=== PATIENT | male | born 1975 | race Caucasian/White ===

== ENCOUNTER 2016-09-07 18:18 | Emergency (ER) | payer OTHER, MEDICAID ==
[~2016-09-07 18:18] MED LIST: ASPI81CH37 CHEW; ATEN50TA PO; CLON1TAB PO; FLUO20CA4 PO; PERC7.5T13 PO; TRAM50TA PO; XARE15TA PO; ZOFR8TAB PO
[2016-09-07 18:36] VITALS: BP 148/98; PULSE 70; RESP 16; TEMP 98.6; O2SAT 98
--- NOTE | 2016-09-07 21:54 | RADHPO ---
EXAM DATE/TIME: 09/07/2016 21:24 [facility] COMPARISON: US LEG RIGHT VENOUS DOPPLER, June 04, 2016, 13:25. INDICATIONS : Right leg pain. MEDICAL HISTORY : Hypertension. Renal calculi. Pulmonary embolism. Vertigo. Anticoagulant therapy, Xarelto. Depress ion. SURGICAL HISTORY : Right shoulder surgery. Left elbow surgery. ENCOUNTER: Subsequent ACUITY: 3 days PAIN SCORE: 7/10 LOCATION: Right leg. TECHNIQUE: Venous ultrasound of the leg was performed from the inguinal ligament to the proximal calf. Real-cesar e, color Doppler and spectral tracing, compression and augmentation techniques were used. FINDINGS: There is normal compressibility of the deep venous system from the inguinal region to the proximal ca lf. No echogenic clot is seen in the lumen of the common femoral, femoral, popliteal, and posterior tibial veins. There is a normal response of the venous system to proximal and distal augmentation an d respiration. CONCLUSION: No DVT. Nahun Meadows MD on September 07, 2016 at 21:53 Board Certified Radiologist. This report was verified electronically.
--- NOTE | 2016-09-07 22:19 | PD ---
HPI Chief Complaint: Musculoskeletal Complaint Time Seen by Provider: 22:14 Travel History International Travel<30 days: No Contact w/Intl Traveler<30days: No Traveled to known affect area: No History of Present Illness HPI Patient comes in with concerns over right calf pain. Patient states he's had history of blood clot in that leg previously and was on Xarelto however is primary care doctor took him off of it. Patient states pain began 3 days ago. Patient states he's been having a pain from his sciatica right-sided ongoing for approximately week which he sees a chiropractor. States the chiropractor recommended he come in to be evaluate for possible new DVT. Patient described pain is sharp like in nature that radiates proximally. Denies any chest pain, shortness of breath, fevers, or known injury. PFSH Past Medical History Hx Anticoagulant Therapy: No (S/P XARELTO) Arthritis: No Asthma: No Autoimmune Disease: No Anxiety: No Depression: Yes Heart Rhythm Problems: No Cancer: No Cardiovascular Problems: Yes (htn) High Cholesterol: No Chemotherapy: No Chest Pain: No Congestive Heart Failure: No COPD: No Cerebrovascular Accident: No Diabetes: No Diminished Hearing: No Endocrine: No GERD: No Genitourinary: Yes Hiatal Hernia: No Hypertension: Yes Immune Disorder: No Implanted Vascular Access Dvce: Yes Kidney Stones: Yes Medical other: Yes (Vertigo) Musculoskeletal: Yes (right shoulder and left elbow surgery) Neurologic: No Psychiatric: Yes Reproductive: No Immunizations Current: Yes Radiation Therapy: No Renal Failure: No Sickle Cell Disease: No Sleep Apnea: No Ulcer: No Past Surgical History Abdominal Surgery: No AICD: No Arteriovenous Shunt: No Body Medical Devices: titanium in right shouler and left elbow Cardiac Surgery: No Ear Surgery: No Endocrine Surgery: No Eye Surgery: No Genitourinary Surgery: No Gynecologic Surgery: No Insulin Pump: No Joint Replacement: No Oral Surgery: No Pacemaker: No Thoracic Surgery: No Other Surgery: Yes Social History Alcohol Use: No Tobacco Use: No Substance Use: No Allergies-Medications (Allergen,Severity, Reaction): Coded Allergies: Morphine (Verified Allergy, Mild, rash, 09/07/16) Percocet (Verified Allergy, Mild, rash, 09/07/16) takes benadryl with it to prevent rash Reported Meds & Prescriptions Reported Meds & Active Scripts Active Xarelto (Rivaroxaban) 15 Mg Tab 15 Mg PO Q12HR Percocet (Oxycodone-Acetaminophen) 7.5-325 mg Tab 1 Tab PO Q4H PRN Reported Clonazepam 1 Mg Tab 1 Mg PO DAILY Atenolol 50 Mg Tab 50 Mg PO DAILY Tramadol (Tramadol HCl) 50 Mg Tab 50 Mg PO Q8H PRN Review of Systems Except as stated in HPI: all other systems reviewed are Neg Physical Exam Narrative GENERAL: Well-developed, well nourished, in no acute distress, and non-ill appearing. SKIN: Warm and dry. HEAD: Atraumatic. Normocephalic. EYES: Pupils equal and round. EOMI. No scleral icterus. No injection or drainage. ENT: No nasal bleeding or discharge. Mucous membranes pink and moist. NECK: Trachea midline. Supple. No nuclear rigidity. CARDIOVASCULAR: Dorsal pulses 2+ intact and equal bilaterally. Capillary refill less than 2 seconds. No pedal edema. RESPIRATORY: No accessory muscle use. No respiratory distress. MUSCULOSKELETAL: No obvious deformities. No clubbing. No cyanosis. No edema. Full range of motion. Negative Homans sign. NEUROLOGICAL: Awake and alert. No obvious cranial nerve deficits. Motor grossly within normal limits. Normal speech. PSYCHIATRIC: Appropriate mood and affect; insight and judgment normal. Data Data Last Documented VS Vital Signs Date Time Temp Pulse Resp B/P Pulse Ox O2 Delivery O2 Flow Rate FiO2 09/07/16 18:36 98.6 70 16 148/98 98 Orders Us Leg Venous Doppler (09/07/16 19:01) MDM Medical Decision Making Medical Screen Exam Complete: Yes Emergency Medical Condition: Yes Differential Diagnosis DVT, sciatica, muscle ache, muscle strain, other Narrative Course Patient in no obvious distress upon re-evaluation. All pertinent Radiology result(s) discussed with patient. Discussed patient with Dr. Abarca prior to discharge, who is in agreement with plan of care and disposition. Any questions /concerns in reference to patient diagnosis/condition discussed and clarified prior to patient's discharge. Reinforced sheer importance of close follow up with patient's primary physician or primary care clinic. Instructed patient to return to ED immediately, if symptoms return/worsen. Pt showed understanding of above instructions. Further instructions and recommendations were detailed in discharge paperwork. Pt ambulated without difficulty out of ED at discharge. Diagnosis Primary Impression: Right leg pain Patient Instructions: General Instructions, Leg Pain (ED) Additional Instructions: Follow-up with your primary care physician in one to 3 days for reevaluation. Return to the emergency department if symptoms get worse. Disposition: 01 DISCHARGE HOME Condition: Stable Brandt Luciano Sep 07, 2016 22:19
== END 2016-09-07 22:52 | disposition home or self-care (01) ==
LOC: PHED 18:18 → PHEFT 22:52
DX: M79.661 Pain in right lower leg (principal)
CPT/HCPCS: 93971

== ENCOUNTER 2016-09-21 09:00 | Emergency (ER) | payer OTHER, MEDICAID ==
[~2016-09-21] VITALS: Ht 180.3 cm; Wt 79.0 kg
[~2016-09-21 09:00] MED LIST changes: -ASPI81CH37 CHEW; -FLUO20CA4 PO; -ZOFR8TAB PO
[2016-09-21 09:21] VITALS: BP 178/98; PULSE 50; RESP 17; TEMP 98.1; O2SAT 100
[2016-09-21] MEDS ORDERED: ZOLP10TA3 PO (09:27)
[2016-09-21 09:37] VITALS: O2SAT 100
[2016-09-21 09:43] VITALS: BP_SYST 140; BP_SYST 160; BP_DIAS 89; BP_DIAS 92
--- NOTE | 2016-09-21 09:44 | PD ---
HPI Chief Complaint: Chest Pain Time Seen by Provider: 09:25 Travel History International Travel<30 days: No Contact w/Intl Traveler<30days: No Traveled to known affect area: No History of Present Illness HPI 41yo M with PMH of anxiety, PE off xarelto presents to the ED with c/o midsternal chest pain since yesterday. States he also has abdominal pain with some nausea. Pain is midsternal and nonradiating. Denies any sob, fever, vomiting, urinary complaints, focal weakness or numbness. Pt has had right lower leg pain for 3 weeks and had negative US RLQ on 09/07/16 that was negative. States it was sciatica. PFSH Past Medical History Hx Anticoagulant Therapy: No (S/P XARELTO) Arthritis: No Asthma: No Autoimmune Disease: No Anxiety: No Depression: Yes Heart Rhythm Problems: No Cancer: No Cardiovascular Problems: Yes (htn) High Cholesterol: No Chemotherapy: No Chest Pain: No Congestive Heart Failure: No COPD: No Cerebrovascular Accident: No Diabetes: No Diminished Hearing: No Deep Vein Thrombosis: Yes (RIGHT LEG) Endocrine: No GERD: No Genitourinary: Yes Hiatal Hernia: No Hypertension: Yes Immune Disorder: No Implanted Vascular Access Dvce: Yes Kidney Stones: Yes Medical other: Yes (Vertigo) Musculoskeletal: Yes (right shoulder and left elbow surgery) Neurologic: No Psychiatric: Yes Reproductive: No Immunizations Current: Yes Radiation Therapy: No Renal Failure: No Sickle Cell Disease: No Sleep Apnea: No Ulcer: No Tetanus Vaccination: > 5 Years Influenza Vaccination: Yes Past Surgical History Abdominal Surgery: No AICD: No Arteriovenous Shunt: No Body Medical Devices: titanium in right shouler and left elbow Cardiac Surgery: No Ear Surgery: No Endocrine Surgery: No Eye Surgery: No Genitourinary Surgery: No Gynecologic Surgery: No Insulin Pump: No Joint Replacement: No Oral Surgery: No Pacemaker: No Thoracic Surgery: No Other Surgery: Yes Social History Alcohol Use: No Tobacco Use: No Substance Use: No Allergies-Medications (Allergen,Severity, Reaction): Coded Allergies: Morphine (Verified Allergy, Mild, rash, 09/21/16) Percocet (Verified Allergy, Mild, rash, 09/21/16) takes benadryl with it to prevent rash Reported Meds & Prescriptions Reported Meds & Active Scripts Active Reported Zolpidem (Zolpidem Tartrate) 10 Mg Tab 10 Mg PO HS PRN Clonazepam 1 Mg Tab 1 Mg PO DAILY Atenolol 50 Mg Tab 50 Mg PO DAILY Review of Systems Except as stated in HPI: all other systems reviewed are Neg Physical Exam Narrative GENERAL: 41yo M not in distress. SKIN: Warm and dry. HEAD: Atraumatic. Normocephalic. EYES: Pupils equal and round. No scleral icterus. No injection or drainage. ENT: No nasal bleeding or discharge. Mucous membranes pink and moist. NECK: Trachea midline. No JVD. CARDIOVASCULAR: Regular rate and rhythm. No murmur appreciated. RESPIRATORY: No accessory muscle use. Clear to auscultation. Breath sounds equal bilaterally. GASTROINTESTINAL: Abdomen soft, diffuse ttp. No rebound tenderness or guarding. MUSCULOSKELETAL: No obvious deformities. No clubbing. No cyanosis. No edema. NEUROLOGICAL: Awake and alert. No obvious cranial nerve deficits. Motor grossly within normal limits. Normal speech. PSYCHIATRIC: Appropriate mood and affect; insight and judgment normal. Data Data Last Documented VS Vital Signs Date Time Temp Pulse Resp B/P Pulse Ox O2 Delivery O2 Flow Rate FiO2 09/21/16 11:12 49 14 135/87 98 Room Air 09/21/16 09:21 98.1 Orders Basic Metabolic Panel (Bmp) (09/21/16 09:34) Ckmb (Isoenzyme) Profile (09/21/16 09:34) Complete Blood Count With Diff (09/21/16 09:34) Magnesium (Mg) (09/21/16 09:34) Prothrombin Time / Inr (Pt) (09/21/16 09:34) Act Partial Throm Time (Ptt) (09/21/16 09:34) Troponin I (09/21/16 09:34) Ecg Monitoring (09/21/16 09:34) Bilateral Bp Monitoring (09/21/16 09:34) Iv Access Insert/Monitor (09/21/16 09:34) Oximetry (09/21/16 09:34) Oxygen Administration (09/21/16 09:34) Sodium Chloride 0.9% Flush (Ns Flush) (09/21/16 09:45) Ct Pulmonary Angiogram (09/21/16 09:34) Ct Abd/Pel W Iv Contrast(Rout) (09/21/16 ) Urinalysis - C+S If Indicated (09/21/16 09:44) Lipase (09/21/16 09:40) Pantoprazole Inj (Protonix Inj) (09/21/16 11:00) Iohexol 350 Inj (Omnipaque 350 Inj) (09/21/16 11:01) Labs Laboratory Tests Test 09/21/16 09/21/16 09:40 09:50 White Blood Count 7.6 TH/MM3 Red Blood Count 5.77 MIL/MM3 Hemoglobin 15.0 GM/DL Hematocrit 46.5 % Mean Corpuscular Volume 80.6 FL Mean Corpuscular Hemoglobin 26.0 PG Mean Corpuscular Hemoglobin 32.3 % Concent Red Cell Distribution Width 14.2 % Platelet Count 173 TH/MM3 Mean Platelet Volume 10.1 FL Neutrophils (%) (Auto) 62.3 % Lymphocytes (%) (Auto) 26.7 % Monocytes (%) (Auto) 9.5 % Eosinophils (%) (Auto) 0.7 % Basophils (%) (Auto) 0.8 % Neutrophils # (Auto) 4.7 TH/MM3 Lymphocytes # (Auto) 2.0 TH/MM3 Monocytes # (Auto) 0.7 TH/MM3 Eosinophils # (Auto) 0.1 TH/MM3 Basophils # (Auto) 0.1 TH/MM3 CBC Comment DIFF FINAL Differential Comment Prothrombin Time 11.5 SEC Prothromb Time International 1.0 RATIO Ratio Activated Partial 26.1 SEC Thromboplast Time Sodium Level 140 MEQ/L Potassium Level 3.4 MEQ/L Chloride Level 100 MEQ/L Carbon Dioxide Level 32.2 MEQ/L Anion Gap 8 MEQ/L Blood Urea Nitrogen 17 MG/DL Creatinine 1.00 MG/DL Estimat Glomerular Filtration 82 ML/MIN Rate Random Glucose 93 MG/DL Calcium Level 8.9 MG/DL Magnesium Level 2.3 MG/DL Total Creatine Kinase 99 U/L Troponin I LESS THAN 0.02 NG/ML Lipase 140 U/L Urine Collection Type CLEAN CATCH Urine Color YELLOW Urine Turbidity CLEAR Urine pH 7.0 Urine Specific Letcher 1.015 Urine Protein NEG mg/dL Urine Glucose (UA) NEG mg/dL Urine Ketones NEG mg/dL Urine Occult Blood SMALL Urine Nitrite NEG Urine Bilirubin NEG Urine Leukocyte Esterase NEG Urine RBC 4-9 /hpf Urine Squamous Epithelial 0-5 /hpf Cells Microscopic Urinalysis Comment CULT NOT INDICATED Urine Collection Time 09:50 [facility] Medical Decision Making Medical Screen Exam Complete: Yes Emergency Medical Condition: Yes Interpretation(s) EKG: Sinus bradycardia at 52bpm. Normal axis. No ST segment elevation or depression. Differential Diagnosis Atypical chest pain vs. musculoskeletal pain vs. PE vs. anxiety Narrative Course 41yo M with very atypical chest pain as well as abdominal pain. Labs reviewed, no leukocytosis. Troponin negative. Lipase negative. K: 3.4, replaced orally. CTA showed no PE, infiltrate or effusion. UA showed small blood. Urine RBC 4 -9. Pt given pantoprazole and reevaluated at bedside. Pain has resolved. Abd is soft, NT/ND. No rebound tenderness or guarding. CT angio showed no PE. CTa /p showed nondistension vs. less likely wall thickening within the descending sigmoid colon. No inflammatory changes. Left kidney low density which may be cyst, informed pt to follow up with PMD as outpatient. Chest pain is very atypical and unlikely to be cardiac. Return precautions given. HR is in the low to mid 50s and is baseline for patient as per patient. Diagnosis Primary Impression: Abdominal pain Qualified Code: R10.84 - Generalized abdominal pain Patient Instructions: General Instructions Departure Forms: Tests/Procedures Additional Instructions: Please follow up with your PMD tomorrow. CT a/p showed left renal low density may be cyst. Please do further evaluation as outpatient. Med/Other Pt SpecificInfo: Prescription(s) given Scripts Omeprazole 40 Mg Cap40 Mg PO DAILY 7 Days Ref 0 Prov:Sonali Morgan DO 09/21/16 Disposition: 01 DISCHARGE HOME Condition: Stable Sonali Morgan DO Sep 21, 2016 09:44
[2016-09-21] MEDS ORDERED: SODIUM CHLORIDE 0.9% FLUSH 5 ML FLUSH IVF PRN (09:45)
[2016-09-21 09:48] LABS: AUTOMATED NEUTROPHIL # 4.7 TH/MM3 (1.8-7.7); BASOPHIL # 0.1 TH/MM3 (0-0.2); BASOPHIL % 0.8 % (0.0-2.0); EOSINOPHIL # 0.1 TH/MM3 (0-0.4); EOSINOPHIL % 0.7 % (0.0-4.0); HEMATOCRIT 46.5 % (39.0-51.0); HEMO FLAGS DIFF FINAL; LYMPH % 26.7 % (9.0-44.0); MEAN CELL VOLUME 80.6 FL (80.0-100.0); MEAN CORPUSCULAR HGB CONC 32.3 % (32.0-36.0); MONO % 9.5 % (0.0-8.0); NEUT % 62.3 % (16.0-70.0); PLATELET COUNT 173 TH/MM3 (150-450); RED BLOOD COUNT 5.77 MIL/MM3 (4.50-5.90); RED CELL DISTRIBUTION WIDTH 14.2 % (11.6-17.2); WHITE BLOOD COUNT 7.6 TH/MM3 (4.0-11.0)
[2016-09-21 10:00] LABS: APTT (PATIENT) 26.1 SEC (24.3-30.1); PROTHROMBIN TIME - PATIENT 11.5 SEC (9.8-11.6)
[2016-09-21 10:02] LABS: BLOOD, URINE SMALL (NEG); GLUCOSE,URINE NEG (NEG); KETONE, URINE NEG (NEG); NITRITE,URINE NEG (NEG)
[2016-09-21 10:10] LABS: CHLORIDE 100 MEQ/L (98-107); POTASSIUM 3.4 MEQ/L (3.5-5.1); SODIUM (NA) 140 MEQ/L (136-145)
[2016-09-21 10:13] LABS: ANION GAP 8 MEQ/L (5-15); BICARBONATE 32.2 MEQ/L (21.0-32.0); MAGNESIUM 2.3 MG/DL (1.5-2.5)
[2016-09-21 10:14] LABS: BLOOD UREA NITROGEN 17 MG/DL (7-18)
[2016-09-21 10:15] LABS: GLOMERULAR FILTRATION RATE 82 ML/MIN (>89)
[2016-09-21 10:41] LABS: CREATINE KINASE 99 U/L (39-308)
[2016-09-21] MEDS ORDERED: PANTOPRAZOLE SODIUM 40 MG VIAL IV PUSH ONE (11:00)
[2016-09-21] MEDS ORDERED: IOHEXOL 350 MG/ML 10 ML VIAL (for RAD DIAG) IV ONE (11:01)
[2016-09-21 11:12] VITALS: BP 135/87; PULSE 49; RESP 14; O2SAT 98
--- NOTE | 2016-09-21 11:19 | RADHPO ---
EXAM DATE/TIME: 09/21/2016 10:51 [facility] COMPARISON: CHEST SINGLE AP, June 05, 2016, 18:21. CT PULMONARY ANGIOGRAM, June 04, 2016, 13:12. INDICATIONS : Intermittent anterior chest tightness. History of pulmonary embolism. IV CONTRAST: 75 cc Omnipaque 350 (iohexol) IV ; Cumulative dose for multiple exams. RADIATION DOSE: 18.55 CTDIvol (mGy) MEDICAL HISTORY : Hypertension. Deep venous thrombosis. Renal calculi.Anticoagulant therapy. Pulmonary embolism. SURGICAL HISTORY : Orthopedic surgery. ENCOUNTER: Initial ACUITY: 2 days PAIN SCALE: 5/10 LOCATION: chest anterior TECHNIQUE: Volumetric scanning of the chest was performed using a pulmonary embolism protocol MIP images were re constructed. Using automated exposure control and adjustment of the mA and/or kV according to patien t size, radiation dose was kept as low as reasonably achievable to obtain optimal diagnostic quality images. FINDINGS: PULMONARY ARTERIES: No filling defects are seen in the pulmonary arteries through the segmental level. LUNGS: There is no consolidation or pneumothorax . No concerning pulmonary nodule is visualized. PLEURAE: There is no pleural thickening or pleural effusion. MEDIASTINUM: There is good visualization of the great vessels of the middle mediastinum. No evidence of mediastin al or hilar adenopathy/mass. MUSCULOSKELETAL: Within normal limits for patient age. MISCELLANEOUS: The visualized upper abdominal organs demonstrate no acute abnormality. CONCLUSION: 1. No evidence for pulmonary embolism. 2. No infiltrate or effusion. Doug Palacios MD on September 21, 2016 at 11:12 Board Certified Radiologist. This report was verified electronically.
--- NOTE | 2016-09-21 11:24 | RADHPO ---
EXAM DATE/TIME: 09/21/2016 10:51 [facility] COMPARISON: No previous studies available for comparison. INDICATIONS : Lower abdominal pain. IV CONTRAST: 75 cc Omnipaque 350 (iohexol) IV ; Cumulative dose for multiple exams. ORAL CONTRAST: No oral contrast ingested. RADIATION DOSE: 16.18 CTDIvol (mGy) MEDICAL HISTORY : Hypertension. Deep venous thrombosis. Renal calculi.Anticoagulant therapy. Pulmonary embolism SURGICAL HISTORY : Orthopedic surgery. ENCOUNTER: Initial ACUITY: 2 days PAIN SCALE: 5/10 LOCATION: Bilateral lower quadrant TECHNIQUE: Volumetric scanning of the abdomen and pelvis was performed. Using automated exposure control and ad justment of the mA and/or kV according to patient size, radiation dose was kept as low as reasonably achievable to obtain optimal diagnostic quality images. FINDINGS: LOWER LUNGS: The visualized lower lungs are clear. LIVER: Homogeneous density without lesion. There is no dilation of the biliary tree. No calcified gallston es. SPLEEN: Normal size without lesion. PANCREAS: Within normal limits. KIDNEYS: Normal in size and shape. There is no mass, stone or hydronephrosis. Left renal low-density upper po le left kidney measure 7 mm. ADRENAL GLANDS: Within normal limits. VASCULAR: There is no aortic aneurysm. BOWEL/MESENTERY: The stomach, small bowel, and colon demonstrate no acute abnormality. Nondistention versus less likel y wall thickening within the descending and sigmoid colon. No inflammatory changes. There is no free intraperitoneal air or fluid. ABDOMINAL WALL: Within normal limits. RETROPERITONEUM: There is no lymphadenopathy. BLADDER: No wall thickening or mass. REPRODUCTIVE: Within normal limits. INGUINAL: There is no lymphadenopathy or hernia. MUSCULOSKELETAL: Within normal limits for patient age. CONCLUSION: 1. Nondistention versus less likely wall thickening within the descending and sigmoid colon. No infla mmatory changes. 2. Left renal low-density left kidney may be related to a cyst but is too small to characterize. Katie l sonogram may be warranted. Doug Palacios MD on September 21, 2016 at 11:17 Board Certified Radiologist. This report was verified electronically.
[2016-09-21 11:43] LABS: COMMENT (UR) CULT NOT INDICATED; CULTURE IF INDICATED CULT NOT INDICATED; METHOD OF COLLECTION CLEAN CATCH; SQUAMOUS EPITHELIAL CELL URINE 0-5 /hpf (0-5); URINE COLOR YELLOW (YELLW/STRAW)
[2016-09-21] MEDS ORDERED: OMEP40CA2 PO (12:27)
[2016-09-21 12:37] VITALS: BP 124/80; PULSE 50; RESP 17; O2SAT 98
--- NOTE | 2016-09-23 00:07 | EKG ---
Date Performed: 09/21/2016 Time Performed: 09:10:14 PTAGE: 41 years EKG: Sinus bradycardia. Normal ECG except for rate PREVIOUS TRACING : 06/05/2016 18.19 Compared to prior tracing no significant change DOCTOR: Lam Doshi Interpretating Date/Time 09/23/2016 00:06:29
== END 2016-09-21 12:47 | disposition home or self-care (01) ==
LOC: PHED 09:00
DX: R10.84 Generalized abdominal pain (principal); R11.0 Nausea; I10 Essential (primary) hypertension; Z79.01 Long term (current) use of anticoagulants
CPT/HCPCS: 71275; 74177; 80048; 81001; 82550; 83690; 83735; 84484; 85025; 85610; 85730; 93005; 96374; 99284; C9113; Q9967

== ENCOUNTER 2016-10-13 00:41 | Emergency (ER) | payer OTHER, MEDICAID ==
[2016-10-13] VITALS (7 sets, daily range): BP systolic 119–154; BP diastolic 75–101; PULSE 54–117; RESP 18–20; TEMP 97.8; O2SAT 96–100
[~2016-10-13] VITALS: Ht 180.3 cm; Wt 81.1 kg
[~2016-10-13 00:41] MED LIST changes: +OMEP40CA2 PO; -PERC7.5T13 PO; -TRAM50TA PO; -XARE15TA PO; +ZOLP10TA3 PO
[2016-10-13] MEDS ORDERED: GABA300C5 PO (01:04)
[2016-10-13] MEDS ORDERED: SODIUM CHLORIDE 0.9% FLUSH 10 ML FLUSH IVF PRN (01:15)
[2016-10-13] MEDS ORDERED: ASPIRIN 81 MG CHEW TAB PO ONE (01:15)
--- NOTE | 2016-10-13 01:18 | PD ---
HPI Chief Complaint: Chest Pain Time Seen by Provider: 01:12 Travel History International Travel<30 days: No Contact w/Intl Traveler<30days: No Traveled to known affect area: No History of Present Illness HPI 41-year-old male presents to the emergency department by private transportation for evaluation of chest pain and shortness of breath. Patient reports symptoms began this morning and have been persistent and progressively worsening throughout the day. Patient also complains of bilateral hand and feet numbness and tingling. Patient ran out of his clonazepam yesterday morning and does not have access to a refill of his prescription until 10/16/16. Patient also reports that he has a history of hypertension but no dyslipidemia no CAD and no diabetes. Patient denies any fever or productive cough. Patient denies any abdominal pain. No laxity pain or swelling. 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 Patient was treated for 2 months on Xarelto and has been off this medication for some time. PFSH Past Medical History Narrative Medical Anxiety, depression, hypertension, DVT, PE, sciatica, kidney stone, right shoulder and left elbow surgery, no tobacco use; nursing notes reviewed Hx Anticoagulant Therapy: No (S/P XARELTO) Arthritis: No Asthma: No Autoimmune Disease: No Anxiety: No Depression: Yes Heart Rhythm Problems: No Cancer: No Cardiovascular Problems: Yes (htn) High Cholesterol: No Chemotherapy: No Chest Pain: No Congestive Heart Failure: No COPD: No Cerebrovascular Accident: No Diabetes: No Diminished Hearing: No Deep Vein Thrombosis: Yes (RIGHT LEG) Endocrine: No GERD: No Genitourinary: Yes Hiatal Hernia: No Hypertension: Yes Immune Disorder: No Implanted Vascular Access Dvce: Yes Kidney Stones: Yes Musculoskeletal: Yes (right shoulder and left elbow surgery) Neurologic: No Psychiatric: Yes Reproductive: No Immunizations Current: Yes Radiation Therapy: No Renal Failure: No Sickle Cell Disease: No Sleep Apnea: No Ulcer: No Past Surgical History Abdominal Surgery: No AICD: No Arteriovenous Shunt: No Body Medical Devices: titanium in right shouler and left elbow Cardiac Surgery: No Ear Surgery: No Endocrine Surgery: No Eye Surgery: No Genitourinary Surgery: No Gynecologic Surgery: No Insulin Pump: No Joint Replacement: No Oral Surgery: No Pacemaker: No Thoracic Surgery: No Other Surgery: Yes Social History Alcohol Use: No Tobacco Use: No Substance Use: No Allergies-Medications (Allergen,Severity, Reaction): Coded Allergies: Morphine (Verified Allergy, Mild, rash, 10/13/16) Percocet (Verified Allergy, Mild, rash, 10/13/16) takes benadryl with it to prevent rash Reported Meds & Prescriptions Reported Meds & Active Scripts Active Robaxin (Methocarbamol) 750 Mg Tab 750 Mg PO Q6HR Reported Gabapentin 300 Mg Cap 300 Mg PO BID Clonazepam 1 Mg Tab 1 Mg PO DAILY Atenolol 50 Mg Tab 50 Mg PO DAILY Review of Systems Except as stated in HPI: all other systems reviewed are Neg General / Constitutional: No: Fever, Chills HENT: No: Congestion Cardiovascular: Positive: Chest Pain or Discomfort Respiratory: Positive: Shortness of Breath, No: Pleuritic Pain Gastrointestinal: No: Nausea, Vomiting, Abdominal Pain Genitourinary: No: Dysuria, Flank Pain Musculoskeletal: No: Myalgias, Arthralgias, Edema Skin: No Rash Neurologic: Positive: Paresthesia (bilateral hands and feet), No: Weakness, Dizziness, Syncope, Focal Abnormalities, Coordination Problem, Headache, Change in Mentation, Slurred Speech Psychiatric: Positive: Anxiety, No: Substance Abuse Endocrine: No: Heat Intolerance Hematologic/Lymphatic: No: Easy Bruising Physical Exam Narrative GENERAL: Well-developed well-nourished male in no respiratory distress appears anxious SKIN: Warm and dry. HEAD: Atraumatic. Normocephalic. EYES: Pupils equal and round. No scleral icterus. No injection or drainage. ENT: No nasal bleeding or discharge. Mucous membranes pink and moist. NECK: Trachea midline. No JVD. CARDIOVASCULAR: Regular rate and rhythm. RESPIRATORY: No accessory muscle use. Clear to auscultation. Breath sounds equal bilaterally. GASTROINTESTINAL: Abdomen soft, non-tender, nondistended. Hepatic and splenic margins not palpable. MUSCULOSKELETAL: Extremities without clubbing, cyanosis, or edema. No obvious deformities. NEUROLOGICAL: Awake and alert. No obvious cranial nerve deficits. Motor grossly within normal limits. Five out of 5 muscle strength in the arms and legs. Normal speech. PSYCHIATRIC: Appropriate mood and affect; insight and judgment normal. Data Data Last Documented VS Vital Signs Date Time Temp Pulse Resp B/P Pulse Ox O2 Delivery O2 Flow Rate FiO2 10/13/16 02:47 59 18 119/75 96 Room Air 10/13/16 01:09 97.8 Orders Electrocardiogram (10/13/16 01:12) Basic Metabolic Panel (Bmp) (10/13/16 01:12) Ckmb (Isoenzyme) Profile (10/13/16 01:12) Complete Blood Count With Diff (10/13/16 01:12) D-Dimer (10/13/16 01:12) Magnesium (Mg) (10/13/16 01:12) Prothrombin Time / Inr (Pt) (10/13/16 01:12) Act Partial Throm Time (Ptt) (10/13/16 01:12) Troponin I (10/13/16 01:12) Chest, Single Ap (10/13/16 01:12) Ecg Monitoring (10/13/16 01:12) Bilateral Bp Monitoring (10/13/16 01:12) Iv Access Insert/Monitor (10/13/16 01:12) Oximetry (10/13/16 01:12) Oxygen Administration (10/13/16 01:12) Aspirin Chew (Aspirin Chew) (10/13/16 01:15) Sodium Chloride 0.9% Flush (Ns Flush) (10/13/16 01:15) CKMB (10/13/16 01:35) CKMB% (10/13/16 01:35) Potassium Chloride (Kcl) (10/13/16 03:00) Sodium Chlorid 0.9% 500 Ml Inj (Ns 500 M (10/13/16 03:00) Ketorolac Inj (Toradol Inj) (10/13/16 03:00) Labs Laboratory Tests Test 10/13/16 01:35 White Blood Count 6.9 TH/MM3 Red Blood Count 5.64 MIL/MM3 Hemoglobin 14.5 GM/DL Hematocrit 45.1 % Mean Corpuscular Volume 79.9 FL Mean Corpuscular Hemoglobin 25.7 PG Mean Corpuscular Hemoglobin 32.2 % Concent Red Cell Distribution Width 14.9 % Platelet Count 177 TH/MM3 Mean Platelet Volume 10.3 FL Neutrophils (%) (Auto) 65.4 % Lymphocytes (%) (Auto) 25.6 % Monocytes (%) (Auto) 7.7 % Eosinophils (%) (Auto) 0.6 % Basophils (%) (Auto) 0.7 % Neutrophils # (Auto) 4.6 TH/MM3 Lymphocytes # (Auto) 1.8 TH/MM3 Monocytes # (Auto) 0.5 TH/MM3 Eosinophils # (Auto) 0.0 TH/MM3 Basophils # (Auto) 0.0 TH/MM3 CBC Comment DIFF FINAL Differential Comment Prothrombin Time 11.8 SEC Prothromb Time International 1.1 RATIO Ratio Activated Partial 26.4 SEC Thromboplast Time D-Dimer Quantitative (PE/DVT) 0.20 MG/L FEU Sodium Level 142 MEQ/L Potassium Level 3.1 MEQ/L Chloride Level 105 MEQ/L Carbon Dioxide Level 23.5 MEQ/L Anion Gap 14 MEQ/L Blood Urea Nitrogen 17 MG/DL Creatinine 1.00 MG/DL Estimat Glomerular Filtration 82 ML/MIN Rate Random Glucose 113 MG/DL Calcium Level 9.4 MG/DL Magnesium Level 2.0 MG/DL Total Creatine Kinase 535 U/L Creatine Kinase MB 1.9 NG/ML Creatine Kinase MB % 0.4 % Troponin I LESS THAN 0.02 NG/ML MDM Medical Decision Making Medical Screen Exam Complete: Yes Emergency Medical Condition: Yes Medical Record Reviewed: Yes Interpretation(s) EKG: Normal sinus rhythm rate [address] elevation or injury pattern also no ectopy noted Vital Signs Date Time Temp Pulse Resp B/P Pulse Ox O2 Delivery O2 Flow Rate FiO2 10/13/16 02:47 59 18 119/75 96 Room Air 10/13/16 01:45 65 18 121/76 97 Room Air 10/13/16 01:21 98 20 154/101 100 Room Air 151/83 10/13/16 01:14 98 20 100 Room Air 10/13/16 01:14 20 100 Room Air 10/13/16 01:14 100 Room Air 10/13/16 01:09 97.8 98 20 154/101 100 10/13/16 00:47 97.8 117 20 154/101 CBC & BMP Diagram 10/13/16 01:35 Last Impressions Chest X-Ray 10/13/16 0112 Signed Impressions: Service Date/Time: September 01:21 - CONCLUSION: No acute disease. Renzo Barry MD Differential Diagnosis Chest pain, ACS, [place], PE, pneumothorax, pneumonia, musculoskeletal pain, benzodiazepine withdrawal, anxiety Narrative Course Patient placed on property assessment monitor IV access obtained specimens collected and sent for resulting EKG performed which reveals no ST elevation; patient administered aspirin At 2:58 AM patient feels clinically improved aware of lab results and has received oral replacement of potassium as well as small bolus of normal saline; patient now complains of history of sciatica effecting his right lower extremity and states that sitting on the stretcher is aggravating this. Patient given injection of Toradol 30 mg IV. Diagnosis Primary Impression: Atypical chest pain Additional Impression: Sciatica of right side Referrals: Primary Care Physician 2 days Patient Instructions: General Instructions Additional Instructions: Increase fluid hydration Add potassium containing foods and beverages to dietary intake Apply moist heat to low back for sciatica Use muscle relaxant as prescribed as needed for sciatica pain May use [id number] ibuprofen/Advil/Motrin as needed for pain associated with inflammation Return to the emergency department for any concerns or change in condition Follow-up with her primary care provider call office to a.m. to schedule follow- up appointment Med/Other Pt SpecificInfo: Prescription(s) given Scripts Methocarbamol (Robaxin)750 Mg Ito373 Mg PO Q6HR #10 TAB Ref 0 Prov:Arcelia Mejía MD 10/13/16 Disposition: 01 DISCHARGE HOME Condition: Stable Arcelia Mejía MD Oct 13, 2016 01:18
--- NOTE | 2016-10-13 01:30 | RADHPO ---
EXAM DATE/TIME: 10/13/2016 01:21 [facility] COMPARISON: CHEST SINGLE AP, June 05, 2016, 18:21. INDICATIONS : Chest tightness, difficulty breathing starting tonight MEDICAL HISTORY : None. SURGICAL HISTORY : None. ENCOUNTER: Initial ACUITY: 1 day PAIN SCORE: 0/10 LOCATION: Bilateral chest FINDINGS: A single view of the chest demonstrates the lungs to be symmetrically aerated without evidence of mas s, infiltrate or effusion. The cardiomediastinal contours are unremarkable. Osseous structures are intact. CONCLUSION: No acute disease. Renzo Barry MD on October 13, 2016 at 1:29 Board Certified Radiologist. This report was verified electronically.
[2016-10-13 01:45] LABS: AUTOMATED NEUTROPHIL # 4.6 TH/MM3 (1.8-7.7); BASOPHIL % 0.7 % (0.0-2.0); EOSINOPHIL % 0.6 % (0.0-4.0); HEMATOCRIT 45.1 % (39.0-51.0); HEMO FLAGS DIFF FINAL; LYMPH % 25.6 % (9.0-44.0); LYMPHOCYTE # 1.8 TH/MM3 (1.0-4.8); MEAN CELL VOLUME 79.9 FL (80.0-100.0); MEAN CORPUSCULAR HEMOGLOBIN 25.7 PG (27.0-34.0); MEAN CORPUSCULAR HGB CONC 32.2 % (32.0-36.0); MONO % 7.7 % (0.0-8.0); NEUT % 65.4 % (16.0-70.0); PLATELET COUNT 177 TH/MM3 (150-450); RED BLOOD COUNT 5.64 MIL/MM3 (4.50-5.90); RED CELL DISTRIBUTION WIDTH 14.9 % (11.6-17.2); WHITE BLOOD COUNT 6.9 TH/MM3 (4.0-11.0)
[2016-10-13 01:53] LABS: CHLORIDE 105 MEQ/L (98-107); POTASSIUM 3.1 MEQ/L (3.5-5.1); SODIUM (NA) 142 MEQ/L (136-145)
[2016-10-13 01:56] LABS: ANION GAP 14 MEQ/L (5-15); BICARBONATE 23.5 MEQ/L (21.0-32.0); BLOOD UREA NITROGEN 17 MG/DL (7-18)
[2016-10-13 01:59] LABS: APTT (PATIENT) 26.4 SEC (24.3-30.1); GLOMERULAR FILTRATION RATE 82 ML/MIN (>89); INTERNATIONAL NORMALIZED RATIO 1.1 RATIO; PROTHROMBIN TIME - PATIENT 11.8 SEC (9.8-11.6)
[2016-10-13 02:02] LABS: CREATINE KINASE 535 U/L (39-308)
[2016-10-13 02:15] LABS: CKMB 1.9 NG/ML (0.5-3.6)
[2016-10-13] MEDS ORDERED: KETOROLAC TROMETHAMINE 30 MG/ML (IVP) VIAL IV PUSH ONE (03:00)
[2016-10-13] MEDS ORDERED: SODIUM CHLORID 0.9% 500 ML INJ 500 ML IV ONE ×2 (03:00→04:00)
[2016-10-13] MEDS ORDERED: POTASSIUM CHLORIDE 20 MEQ CONTROLLED RELEASE TAB PO ONE (03:00)
[2016-10-13] MEDS ORDERED: ROBA750T PO (03:01)
[2016-10-13] MEDS ORDERED: LORazepam 0.5 MG TAB PO ONE (04:00)
[2016-10-13] MEDS ORDERED: ONDANSETRON HCL 4 MG/2 ML VIAL IV PUSH ONE (04:00)
--- NOTE | 2016-10-13 20:22 | EKG ---
Date Performed: 10/13/2016 Time Performed: 00:55:50 PTAGE: 41 years EKG: Sinus rhythm . When compared to previous tracing, sinus rate has increased. Normal ECG PREVIOUS TRACING : 09/21/2016 09.10 DOCTOR: Agapito Collier Interpretating Date/Time 10/13/2016 20:20:32
== END 2016-10-13 04:46 | disposition home or self-care (01) ==
LOC: PHED 00:41
DX: R07.89 Other chest pain (principal); M54.31 Sciatica, right side; I10 Essential (primary) hypertension; F41.8 Other specified anxiety disorders; Z87.442 Personal history of urinary calculi
CPT/HCPCS: 71010; 80048; 82550; 82552; 83735; 84484; 85025; 85379; 85610; 85730; 93005; 96374; 96375; 99285; J1885; J2405; J7040

== ENCOUNTER 2016-11-10 19:24 | Emergency (ER) | payer OTHER, MEDICAID ==
[~2016-11-10] VITALS: Ht 180.3 cm; Wt 80.5 kg
[~2016-11-10 19:24] MED LIST changes: +GABA300C5 PO; -OMEP40CA2 PO; +ROBA750T PO; -ZOLP10TA3 PO
[2016-11-10 19:32] VITALS: BP 149/101; PULSE 74; RESP 18; TEMP 97.7; O2SAT 98
[2016-11-10] MEDS ORDERED: SODIUM CHLOR 0.9% 1000 ML INJ 1,000 ML IV SCH (21:09)
[2016-11-10] MEDS ORDERED: SODIUM CHLORIDE 0.9% FLUSH 10 ML FLUSH IV FLUSH PRN (21:15)
[2016-11-10] MEDS ORDERED: HYDROmorphone HCL PF 2 MG/ML VIAL IVS ONE (21:15)
--- NOTE | 2016-11-10 21:26 | PD ---
HPI Chief Complaint: Complaint Time Seen by Provider: 20:59 Travel History International Travel<30 days: No Contact w/Intl Traveler<30days: No Traveled to known affect area: No History of Present Illness HPI 41-year-old male here for 2 different complaints. For one, he states it is very difficult for him to urinate for the last week, worse today. He states he has to push really hard to urinate and he is having some suprapubic pressure. He is also having some dysuria. No hematuria. No fevers or chills. The patient is also complaining of lower back pain that radiates down his right leg. He reports history of sciatica. He states that the symptoms have been going on for the last 3 weeks, worsening over the last several days. Pain is constant, shooting, radiates down his entire right leg. He also reports history of DVT and PE last year, and is no longer on Xarelto. No dyspnea. No history of IVDU. PFSH Past Medical History Arthritis: No Asthma: No Autoimmune Disease: No Anxiety: No Depression: Yes Heart Rhythm Problems: No Cancer: No Cardiovascular Problems: Yes (htn) High Cholesterol: No Chemotherapy: No Chest Pain: No Congestive Heart Failure: No COPD: No Cerebrovascular Accident: No Diabetes: No Diminished Hearing: No Deep Vein Thrombosis: Yes (RIGHT LEG) Endocrine: No GERD: No Genitourinary: Yes Hiatal Hernia: No Hypertension: Yes Immune Disorder: No Implanted Vascular Access Dvce: Yes Kidney Stones: Yes Musculoskeletal: Yes (right shoulder and left elbow surgery) Neurologic: No Psychiatric: Yes Reproductive: No Immunizations Current: Yes Radiation Therapy: No Renal Failure: No Sickle Cell Disease: No Sleep Apnea: No Ulcer: No Past Surgical History Abdominal Surgery: No AICD: No Arteriovenous Shunt: No Body Medical Devices: titanium in right shouler and left elbow Cardiac Surgery: No Ear Surgery: No Endocrine Surgery: No Eye Surgery: No Genitourinary Surgery: No Gynecologic Surgery: No Insulin Pump: No Joint Replacement: No Oral Surgery: No Pacemaker: No Thoracic Surgery: No Other Surgery: Yes Social History Alcohol Use: No Tobacco Use: No Substance Use: No Allergies-Medications (Allergen,Severity, Reaction): Coded Allergies: Morphine (Verified Allergy, Mild, rash, 11/10/16) Percocet (Verified Allergy, Mild, rash, 11/10/16) takes benadryl with it to prevent rash Reported Meds & Prescriptions Reported Meds & Active Scripts Active Reported Percocet (Oxycodone-Acetaminophen) 7.5-325 mg Tab 1 Tab PO Q6H PRN Zolpidem (Zolpidem Tartrate) 5 Mg Tab 5 Mg PO HS PRN Pravastatin 40 Mg Tab 40 Mg PO DAILY Gabapentin 300 Mg Cap 300 Mg PO BID Clonazepam 1 Mg Tab 1 Mg PO DAILY Atenolol 50 Mg Tab 50 Mg PO DAILY Review of Systems Except as stated in HPI: all other systems reviewed are Neg Physical Exam Narrative GENERAL: Well-developed, well-nourished, mild distress secondary to right lower back pain SKIN: Focused skin assessment warm/dry. HEAD: Atraumatic. Normocephalic. EYES: Pupils equal and round. No scleral icterus. No injection or drainage. ENT: Mucous membranes pink and moist. NECK: Trachea midline. No JVD. CARDIOVASCULAR: Regular rate and rhythm. RESPIRATORY: No accessory muscle use. Clear to auscultation. Breath sounds equal bilaterally. GASTROINTESTINAL: Abdomen soft, nondistended. Moderate suprapubic tenderness without peritoneal signs. Rest of abdomen is soft and nontender. Bedside ultrasound was performed to evaluate bladder for post void residual volume and there is a small amount of urine left after the patient provided a sample in his urine cup. MUSCULOSKELETAL: No obvious deformities. No clubbing. No cyanosis. No edema. Bilateral calves are supple, nontender. Mild midline lumbar spine tenderness without step-off. There is significant tenderness at the right SI joint. NEUROLOGICAL: Awake and alert. No obvious cranial nerve deficits. Motor grossly within normal limits. Normal speech. Normal range of motion and muscle strength in bilateral lower extremities. Great toe extension present bilaterally. No saddle anesthesia. PSYCHIATRIC: Appropriate mood and affect; insight and judgment normal. Data Data Last Documented VS Vital Signs Date Time Temp Pulse Resp B/P Pulse Ox O2 Delivery O2 Flow Rate FiO2 11/10/16 22:17 52 18 142/87 97 Room Air 11/10/16 19:32 97.7 Orders Complete Blood Count With Diff (11/10/16 21:09) Comprehensive Metabolic Panel (11/10/16 21:09) Prothrombin Time / Inr (Pt) (11/10/16 21:09) Act Partial Throm Time (Ptt) (11/10/16 21:09) Urinalysis - C+S If Indicated (11/10/16 21:09) Ct Abd/Pel W Iv Contrast(Rout) (11/10/16 21:09) Iv Access Insert/Monitor (11/10/16 21:09) Ecg Monitoring (11/10/16 21:09) Oximetry (11/10/16 21:09) Hydromorphone Pf Inj (Dilaudid Pf Inj) (11/10/16 21:15) Sodium Chlor 0.9% 1000 Ml Inj (Ns 1000 M (11/10/16 21:09) Sodium Chloride 0.9% Flush (Ns Flush) (11/10/16 21:15) Us Leg Venous Doppler (11/10/16 ) Gc And Chlamydia Pcr (11/10/16 21:13) Mri L Spine W/O Contrast (11/10/16 21:22) Iohexol 350 Inj (Omnipaque 350 Inj) (11/10/16 23:37) Dexamethasone Inj (Decadron Inj) (11/11/16 00:15) Ketorolac Inj (Toradol Inj) (11/11/16 00:15) Labs Laboratory Tests Test 11/10/16 21:45 White Blood Count 7.4 TH/MM3 Red Blood Count 4.95 MIL/MM3 Hemoglobin 13.4 GM/DL Hematocrit 40.0 % Mean Corpuscular Volume 80.8 FL Mean Corpuscular Hemoglobin 27.0 PG Mean Corpuscular Hemoglobin 33.4 % Concent Red Cell Distribution Width 15.8 % Platelet Count 129 TH/MM3 Mean Platelet Volume 11.6 FL Neutrophils (%) (Auto) 73.0 % Lymphocytes (%) (Auto) 16.9 % Monocytes (%) (Auto) 9.0 % Eosinophils (%) (Auto) 0.5 % Basophils (%) (Auto) 0.6 % Neutrophils # (Auto) 5.4 TH/MM3 Lymphocytes # (Auto) 1.3 TH/MM3 Monocytes # (Auto) 0.7 TH/MM3 Eosinophils # (Auto) 0.0 TH/MM3 Basophils # (Auto) 0.0 TH/MM3 CBC Comment DIFF FINAL Differential Comment Prothrombin Time 11.7 SEC Prothromb Time International 1.1 RATIO Ratio Activated Partial 27.3 SEC Thromboplast Time Urine Color YELLOW Urine Turbidity CLEAR Urine pH 7.0 Urine Specific [place] 1.015 Urine Protein NEG mg/dL Urine Glucose (UA) NEG mg/dL Urine Ketones NEG mg/dL Urine Occult Blood SMALL Urine Nitrite NEG Urine Bilirubin NEG Urine Leukocyte Esterase NEG Urine RBC 10-14 /hpf Urine WBC 0-2 /hpf Urine Squamous Epithelial 6-8 /hpf Cells Urine Bacteria NONE /hpf Microscopic Urinalysis Comment CULT NOT INDICATED Sodium Level 142 MEQ/L Potassium Level 3.8 MEQ/L Chloride Level 107 MEQ/L Carbon Dioxide Level 30.3 MEQ/L Anion Gap 5 MEQ/L Blood Urea Nitrogen 15 MG/DL Creatinine 1.10 MG/DL Estimat Glomerular Filtration 73 ML/MIN Rate Random Glucose 86 MG/DL Calcium Level 8.7 MG/DL Total Bilirubin 0.5 MG/DL Aspartate Amino Transf 18 U/L (AST/SGOT) Alanine Aminotransferase 33 U/L (ALT/SGPT) Alkaline Phosphatase 68 U/L Total Protein 7.5 GM/DL Albumin 3.9 GM/DL [facility] Medical Decision Making Medical Screen Exam Complete: Yes Emergency Medical Condition: Yes Differential Diagnosis Urinary retention, cystitis, urethritis, prostatitis, BPH, UTI, spinal stenosis , sciatica Narrative Course Initial vital signs show heart rate 74, blood pressure 149/101, sats 98% on room air, oral temp of 97.7F. Blood pressure improved to 142/87 after pain control. CBC shows WBC 7.4, hemoglobin 13.4, hematocrit 40, platelets 129. CMP is unremarkable. UA shows small occult blood, 10-14 RBCs, 6-8 squamous epithelial cells. Right leg venous duplex is negative for DVT. CT abdomen pelvis: Normal examination. MRI lumbar spine: CONCLUSION: 1. Degenerative changes at L4-L5 and L5-S1 without neural impingement. Patient was made aware of all findings. He is continuing to have pain in his right lower back that radiates down his right leg. He is able to ambulate. He has normal muscle strength in bilateral lower extremities. No saddle anesthesia. He is able to urinate, however he states it is much easier for them to do so when he sits down. MRI result reviewed in detail with the patient. There is no cord compression or spinal canal stenosis. He is also not really displaying any signs or symptoms of cord compression. Patient provided a urine sample in triage, and I performed a bedside transabdominal ultrasound which showed only a small amount of urine in the bladder post void. Patient was able to urinate again while in the emergency department, and again I performed a bedside transabdominal ultrasound afterwards which showed an empty bladder. Patient reports that he has a follow-up appointment with his primary care physician on Monday which is in 4 days. At this point I believe he is stable for discharge home with outpatient follow-up. He will be discharged home with a Medrol Dosepak as well as a prescription for Flomax. He will be given the name of the urologist insulation power unit tender with whom to follow-up with regarding his hematuria, initial sample as of follow-up with the patient which he understands.. I will also given the name of the neurosurgeon on-call regarding his low back pain/sciatica. Again he has normal muscle strength in his bilateral legs, and there are currently no indications for emergent surgical intervention. Patient was informed on when to return to the emergency department. He verbalizes understanding and agreement with plan. Diagnosis Primary Impression: Dysuria Additional Impressions: Sciatica Qualified Code: M54.31 - Sciatica of right side Hematuria Referrals: Derrek Bardales MD 3 days Neurosurgeon Tigre Bermudez MD 3 days Urologist Primary Care Physician 3 days Additional Instructions: Follow-up with your primary care physician as scheduled on Monday. Follow-up with urologist Dr. Bermudez or urologist of your choice this week. Follow-up with neurosurgeon Dr. Bardales regarding your sciatica pain. Return to the emergency department for worsening symptoms or any other concerns as discussed. Scripts Tramadol 50 Mg Tab50 Mg PO Q6H PRN (PAIN) #20 TAB Ref 0 Prov:Jaydon Vera MD 11/11/16 Methylprednisolone Dosepak (Medrol Dosepak)4 Mg Dspk4 Mg PO DIRECTED #1 DSPK Ref 0 Per Pharmacist direction Prov:Jaydon Vera MD 11/11/16 Disposition: 01 DISCHARGE HOME Condition: Stable Jaydon Vera MD Nov 10, 2016 21:26
[2016-11-10 21:30] VITALS: BP 142/87; PULSE 52; RESP 18; O2SAT 97
[2016-11-10 22:07] LABS: AUTOMATED NEUTROPHIL # 5.4 TH/MM3 (1.8-7.7); BASOPHIL % 0.6 % (0.0-2.0); EOSINOPHIL % 0.5 % (0.0-4.0); HEMO FLAGS DIFF FINAL; LYMPH % 16.9 % (9.0-44.0); LYMPHOCYTE # 1.3 TH/MM3 (1.0-4.8); MEAN CELL VOLUME 80.8 FL (80.0-100.0); MEAN CORPUSCULAR HGB CONC 33.4 % (32.0-36.0); PLATELET COUNT 129 TH/MM3 (150-450); RED BLOOD COUNT 4.95 MIL/MM3 (4.50-5.90); RED CELL DISTRIBUTION WIDTH 15.8 % (11.6-17.2); WHITE BLOOD COUNT 7.4 TH/MM3 (4.0-11.0)
[2016-11-10] MEDS ORDERED: PERC7.5T13 PO (22:07)
[2016-11-10] MEDS ORDERED: PRAV40TA2 PO (22:07)
[2016-11-10] MEDS ORDERED: ZOLP5TAB3 PO (22:07)
[2016-11-10 22:10] LABS: CHLORIDE 107 MEQ/L (98-107); POTASSIUM 3.8 MEQ/L (3.5-5.1); SODIUM (NA) 142 MEQ/L (136-145)
--- NOTE | 2016-11-10 22:13 | RADHPO ---
EXAM DATE/TIME: 11/10/2016 21:58 [facility] COMPARISON: No previous studies available for comparison. INDICATIONS : Right leg pain. MEDICAL HISTORY : Hypertension. Deep venous thrombosis. Renal calculi. SURGICAL HISTORY : Rotator cuff, right. Left elbow surgery. ENCOUNTER: Subsequent ACUITY: 1 week PAIN SCORE: 3/10 LOCATION: Right leg. TECHNIQUE: Venous ultrasound of the leg was performed from the inguinal ligament to the proximal calf. Real-cesar e, color Doppler and spectral tracing, compression and augmentation techniques were used. FINDINGS: There is normal compressibility of the deep venous system from the inguinal region to the proximal ca lf. No echogenic clot is seen in the lumen of the common femoral, femoral, popliteal, and posterior tibial veins. There is a normal response of the venous system to proximal and distal augmentation an d respiration. CONCLUSION: Normal examination. Farhan Chavez MD on November 10, 2016 at 22:11 Board Certified Radiologist. This report was verified electronically.
[2016-11-10 22:15] LABS: ANION GAP 5 MEQ/L (5-15); APTT (PATIENT) 27.3 SEC (24.3-30.1); BICARBONATE 30.3 MEQ/L (21.0-32.0); BLOOD UREA NITROGEN 15 MG/DL (7-18); INTERNATIONAL NORMALIZED RATIO 1.1 RATIO; PROTHROMBIN TIME - PATIENT 11.7 SEC (9.8-11.6)
[2016-11-10 22:16] LABS: BLOOD, URINE SMALL (NEG); GLUCOSE,URINE NEG (NEG); KETONE, URINE NEG (NEG); NITRITE,URINE NEG (NEG)
[2016-11-10 22:17] VITALS: BP 142/87; PULSE 52; RESP 18; O2SAT 97
[2016-11-10 22:18] LABS: ALT (GPT) 33 U/L (12-78); AST (GOT) 18 U/L (15-37); GLOMERULAR FILTRATION RATE 73 ML/MIN (>89)
[2016-11-10 22:20] LABS: TOTAL BILIRUBIN ADULT 0.5 MG/DL (0.2-1.0)
[2016-11-10 22:21] LABS: ALKALINE PHOSPHATASE 68 U/L (45-117)
[2016-11-10 22:27] LABS: COMMENT (UR) CULT NOT INDICATED; CULTURE IF INDICATED CULT NOT INDICATED; URINE COLOR YELLOW (YELLW/STRAW); WBC, URINE 0-2 /hpf (0-5)
[2016-11-10] MEDS ORDERED: IOHEXOL 350 MG/ML 10 ML VIAL (for RAD DIAG) IV ONE (23:37)
--- NOTE | 2016-11-10 23:42 | RADHPO ---
EXAM DATE/TIME: 11/10/2016 23:03 [facility] COMPARISON: No previous studies available for comparison. INDICATIONS : Back pain radiating to right leg. No injury. MEDICAL HISTORY : Renal calculi. SURGICAL HISTORY : Right shoulder. Left elbow. ENCOUNTER: Subsequent ACUITY: 1 day PAIN SCORE: 9/10 LOCATION: back. TECHNIQUE: Multiplanar multisequence MRI of the lumbar spine was performed without contrast. FINDINGS: The most caudal appearing lumbar vertebra is numbered as L5. VERTEBRAE: Homogeneous signal. Normal alignment. CONUS: Normal level and configuration. T12-L1: The thecal sac has a normal diameter. No evidence of disc bulge or protrusion. The neural foramina are patent bilaterally. L1-L2: The thecal sac has a normal diameter. No evidence of disc bulge or protrusion. The neural foramina are patent bilaterally. L2-L3: The thecal sac has a normal diameter. No evidence of disc bulge or protrusion. The neural foramina are patent bilaterally. L3-L4: The thecal sac has a normal diameter. No evidence of disc bulge or protrusion. The neural foramina are patent bilaterally. Mild ligamentum flavum hypertrophy of the facets. L4-L5: There is disc desiccation with a broad based disc bulge eccentric to the right that narrows the right lateral recess. Left lateral recess and central canal are patent. Neural foramina are patent. Mild b dominick hypertrophy of the facets. L5-S1: A mild central disc bulge with disc space narrowing. Lateral recesses, central canal, and neural fora men are patent. Mild bony hypertrophy of the facets. CONCLUSION: 1. Degenerative changes at L4-L5 and L5-S1 without neural impingement. Jay Franklin Jr., MD on November 10, 2016 at 23:35 Board Certified Radiologist. This report was verified electronically.
--- NOTE | 2016-11-10 23:58 | RADHPO ---
EXAM DATE/TIME: 11/10/2016 23:25 [facility] COMPARISON: CT ABDOMEN & PELVIS W CONTRAST, September 21, 2016, 10:51. INDICATIONS : Lower back pain with dysuria. IV CONTRAST: 96 cc Omnipaque 350 (iohexol) IV ORAL CONTRAST: No oral contrast ingested. RADIATION DOSE: 9.33 CTDIvol (mGy) MEDICAL HISTORY : Hypertension. Deep venous thrombosis. Renal calculi. SURGICAL HISTORY : None. ENCOUNTER: Initial ACUITY: 1 day PAIN SCALE: 6/10 LOCATION: lower quadrant TECHNIQUE: Volumetric scanning of the abdomen and pelvis was performed. Using automated exposure control and ad justment of the mA and/or kV according to patient size, radiation dose was kept as low as reasonably achievable to obtain optimal diagnostic quality images. FINDINGS: LOWER LUNGS: The visualized lower lungs are clear. LIVER: Homogeneous density without lesion. There is no dilation of the biliary tree. No calcified gallston es. SPLEEN: Normal size without lesion. PANCREAS: Within normal limits. KIDNEYS: Normal in size and shape. There is no mass, stone or hydronephrosis. ADRENAL GLANDS: Within normal limits. VASCULAR: There is no aortic aneurysm. BOWEL/MESENTERY: The stomach, small bowel, and colon demonstrate no acute abnormality. There is no free intraperitone al air or fluid. ABDOMINAL WALL: Within normal limits. RETROPERITONEUM: There is no lymphadenopathy. BLADDER: No wall thickening or mass. REPRODUCTIVE: Within normal limits. INGUINAL: There is no lymphadenopathy or hernia. MUSCULOSKELETAL: Within normal limits for patient age. CONCLUSION: Normal examination. Jay Franklin Jr., MD on November 10, 2016 at 23:54 Board Certified Radiologist. This report was verified electronically.
[2016-11-11] MEDS ORDERED: TAMSULOSIN HCL 0.4 MG CAP PO ONE (00:15)
[2016-11-11] MEDS ORDERED: KETOROLAC TROMETHAMINE 30 MG/ML (IVP) VIAL IV PUSH ONE (00:15)
[2016-11-11] MEDS ORDERED: DEXAMETHASONE SOD PHOS 4 MG/ML VIAL IV PUSH ONE (00:15)
[2016-11-11] MEDS ORDERED: MEDR4PAK PO (00:18)
[2016-11-11] MEDS ORDERED: TRAM50TA PO (00:18)
[2016-11-11 00:29] VITALS: BP 134/67
[2016-11-11 04:09] LABS: CHLAMYDIA PCR NOT DETECTED (NOT DETECT); NEISSERIA PCR NOT DETECTED (NOT DETECT)
== END 2016-11-11 01:02 | disposition home or self-care (01) ==
LOC: PHED 19:24
DX: R30.0 Dysuria (principal); M54.31 Sciatica, right side; R31.9 Hematuria, unspecified; I10 Essential (primary) hypertension; M79.605 Pain in left leg; Z86.718 Personal history of other venous thrombosis and embolism; Z86.711 Personal history of pulmonary embolism; Z87.442 Personal history of urinary calculi
CPT/HCPCS: 72148; 74177; 80053; 81001; 85025; 85610; 85730; 87491; 87591; 93971; 96361; 96374; 96375; 99284; J1100; J1170; J1885; J7030; Q9967

== ENCOUNTER 2016-12-28 21:55 | Emergency (ER) | payer OTHER, MEDICAID ==
[~2016-12-28] VITALS: Ht 180.3 cm; Wt 80.0 kg
[~2016-12-28 21:55] MED LIST changes: +MEDR4PAK PO; +PERC7.5T13 PO; +PRAV40TA2 PO; -ROBA750T PO; +TRAM50TA PO; +ZOLP5TAB3 PO
[2016-12-28 22:02] VITALS: BP 144/97; PULSE 82; RESP 14; TEMP 97.7; O2SAT 97
[2016-12-28] MEDS ORDERED: KETOROLAC TROMETHAMINE 30 MG/ML (IVP) VIAL IV PUSH ONE (22:45)
--- NOTE | 2016-12-28 22:54 | PD ---
HPI Chief Complaint: Musculoskeletal Complaint Time Seen by Provider: 22:36 Travel History International Travel<30 days: No Contact w/Intl Traveler<30days: No Traveled to known affect area: No History of Present Illness HPI 41 year-old male presents to the emergency department by private transportation for complaint of low back pain radiating to the right groin and right lower extremity. Patient with history of sciatica, lumbar disc disease, DVT, hypertension, and PE. Patient has had previous elbow surgery. Patient is a longer on blood thinning agent. Patient's had same symptoms since at least October 2016. Patient was seen for same complaint in October and at that time lab work was done which is Monday grossly within normal limits except for some nonspecific red blood cells on urinalysis and ultrasound of the right lower extremity was negative for DVT CT of the abdomen and pelvis revealed no abdominal aortic aneurysm or acute abnormality and a lumbar MRI showed degenerative changes at L4 5 and L5-S1 without neural impingement. Patient was treated with steroids and referred to urologist for nonspecific hematuria and to neurosurgeon for sciatica and lumbar disc disease pain. Patient has not followed up with either specialist. Patient has seen his primary care doctor and patient has prescription for Percocet as well as gabapentin and clonazepam and states that his pain is not relieved. Patient continues to state that he needs to sit down to have a good urine stream. Patient has had no saddle anesthesia and denies any bowel dysfunction and no lower extremity weakness. Patient is able to urinate just states that he has noted some difficulty for the past several months. Patient has not noticed any increased or worsening symptoms. Patient denies any lower extremity swelling. Patient does complain of localizing pain to the right lateral calf. Patient has had no recent travel , protracted bedrest or surgical procedure. Patient also has described right lower extremity pain as worsening with exertion or with elevation of the lower extremity; no prior history of peripheral vascular disease. PFSH Past Medical History Narrative Medical Depression hypertension dyslipidemia DVT PE elbow surgery no tobacco use nursing notes reviewed Arthritis: No Asthma: No Autoimmune Disease: No Anxiety: No Depression: Yes Heart Rhythm Problems: No Cancer: No Cardiovascular Problems: Yes (htn) High Cholesterol: Yes Chemotherapy: No Chest Pain: No Congestive Heart Failure: No COPD: No Cerebrovascular Accident: No Diabetes: No Diminished Hearing: No Deep Vein Thrombosis: Yes (RIGHT LEG) Endocrine: No GERD: No Genitourinary: Yes Hiatal Hernia: No Hypertension: Yes Immune Disorder: No Implanted Vascular Access Dvce: Yes Kidney Stones: Yes Medical other: Yes (Vertigo) Musculoskeletal: Yes (right shoulder and left elbow surgery) Neurologic: No Psychiatric: Yes Reproductive: No Immunizations Current: Yes Radiation Therapy: No Renal Failure: No Sickle Cell Disease: No Sleep Apnea: No Ulcer: No Past Surgical History Abdominal Surgery: No AICD: No Arteriovenous Shunt: No Body Medical Devices: titanium in right shouler and left elbow Cardiac Surgery: No Ear Surgery: No Endocrine Surgery: No Eye Surgery: No Genitourinary Surgery: No Gynecologic Surgery: No Insulin Pump: No Joint Replacement: No Oral Surgery: No Pacemaker: No Thoracic Surgery: No Other Surgery: Yes Social History Alcohol Use: No Tobacco Use: No Substance Use: No Allergies-Medications (Allergen,Severity, Reaction): Coded Allergies: Morphine (Verified Allergy, Mild, rash, 12/28/16) Percocet (Verified Allergy, Mild, rash, 12/28/16) takes benadryl with it to prevent rash Reported Meds & Prescriptions Reported Meds & Active Scripts Active Prednisone 50 Mg Tab 50 Mg PO DAILY 4 Days Tramadol (Tramadol HCl) 50 Mg Tab 50 Mg PO Q6H PRN Medrol Dosepak (Methylprednisolone) 4 Mg Dspk 4 Mg PO DIRECTED Per Pharmacist direction Reported Percocet (Oxycodone-Acetaminophen) 7.5-325 mg Tab 1 Tab PO Q6H PRN Zolpidem (Zolpidem Tartrate) 5 Mg Tab 5 Mg PO HS PRN Pravastatin 40 Mg Tab 40 Mg PO DAILY Gabapentin 300 Mg Cap 300 Mg PO BID Clonazepam 1 Mg Tab 1 Mg PO DAILY Atenolol 50 Mg Tab 50 Mg PO DAILY Review of Systems Except as stated in HPI: all other systems reviewed are Neg General / Constitutional: No: Fever, Chills HENT: No: Congestion Cardiovascular: No: Chest Pain or Discomfort Respiratory: No: Shortness of Breath Gastrointestinal: No: Vomiting, Abdominal Pain Genitourinary: No: Flank Pain Musculoskeletal: Positive: Myalgias, Arthralgias, Pain (low back and right lower extremity) Skin: No Rash Neurologic: Positive: Paresthesia, No: Weakness, Focal Abnormalities, Coordination Problem, Incontinence Psychiatric: No: Anxiety Hematologic/Lymphatic: No: Lymph Node Enlargement Physical Exam Narrative GENERAL: Well developed well nourished male in no acute distress or respiratory distress. GCS 15. SKIN: Warm and dry. HEAD: Atraumatic. Normocephalic. EYES: Pupils equal and round. No scleral icterus. No injection or drainage. ENT: No nasal bleeding or discharge. Mucous membranes pink and moist. NECK: Trachea midline. No JVD. CARDIOVASCULAR: Regular rate and rhythm. RESPIRATORY: No accessory muscle use. Clear to auscultation. Breath sounds equal bilaterally. GASTROINTESTINAL: Abdomen soft, non-tender, nondistended. Hepatic and splenic margins not palpable. MUSCULOSKELETAL: Extremities without clubbing, cyanosis, or edema. No obvious deformities. Mild tenderness to palpation of the right SI joint. Straight leg raising reproduces pain to right groin/back bilaterally. Bilateral radial, femoral, dorsalis pedis pulses, as well as, posterior tibialis pulses 2+ to palpation. Bilateral upper extremity and lower extremity capillary refill brisk and less than 2 seconds. No pallor or coolness of the limbs. NEUROLOGICAL: Awake and alert. No obvious cranial nerve deficits. Motor grossly within normal limits. Five out of 5 muscle strength in the arms and legs. DTRs 2+ and equal bilateral lower extremities. Sensory exam intact. Normal speech. PSYCHIATRIC: Appropriate mood and affect; insight and judgment normal. Data Data Last Documented VS Vital Signs Date Time Temp Pulse Resp B/P Pulse Ox O2 Delivery O2 Flow Rate FiO2 12/29/16 00:28 55 16 140/80 97 Room Air 12/28/16 22:02 97.7 Orders Complete Blood Count With Diff (12/28/16 22:36) Basic Metabolic Panel (Bmp) (12/28/16 22:36) ^ Saline Lock (12/28/16 22:36) Ketorolac Inj (Toradol Inj) (12/28/16 22:45) Us Leg Venous Doppler (12/28/16 ) Urinalysis - C+S If Indicated (12/28/16 22:36) Bladder Scan PRN (12/28/16 22:36) Magnesium (Mg) (12/28/16 22:36) Sodium Chlor 0.9% 1000 Ml Inj (Ns 1000 M (12/29/16 00:00) Dexamethasone Inj (Decadron Inj) (12/29/16 00:15) Labs Laboratory Tests Test 12/28/16 21:52 White Blood Count 6.3 TH/MM3 Red Blood Count 5.01 MIL/MM3 Hemoglobin 13.8 GM/DL Hematocrit 41.3 % Mean Corpuscular Volume 82.4 FL Mean Corpuscular Hemoglobin 27.6 PG Mean Corpuscular Hemoglobin 33.5 % Concent Red Cell Distribution Width 14.1 % Platelet Count 150 TH/MM3 Mean Platelet Volume 11.0 FL Neutrophils (%) (Auto) 68.1 % Lymphocytes (%) (Auto) 20.9 % Monocytes (%) (Auto) 8.2 % Eosinophils (%) (Auto) 2.0 % Basophils (%) (Auto) 0.8 % Neutrophils # (Auto) 4.2 TH/MM3 Lymphocytes # (Auto) 1.3 TH/MM3 Monocytes # (Auto) 0.5 TH/MM3 Eosinophils # (Auto) 0.1 TH/MM3 Basophils # (Auto) 0.1 TH/MM3 CBC Comment DIFF FINAL Differential Comment Urine Color YELLOW Urine Turbidity CLEAR Urine pH 6.0 Urine Specific [place] 1.028 Urine Protein NEG mg/dL Urine Glucose (UA) NEG mg/dL Urine Ketones TRACE mg/dL Urine Occult Blood LARGE Urine Nitrite NEG Urine Bilirubin NEG Urine Leukocyte Esterase NEG Urine RBC 25-49 /hpf Urine WBC 0-2 /hpf Urine Squamous Epithelial 0-5 /hpf Cells Urine Bacteria NONE /hpf Microscopic Urinalysis Comment CULT NOT INDICATED Sodium Level 144 MEQ/L Potassium Level 3.7 MEQ/L Chloride Level 109 MEQ/L Carbon Dioxide Level 26.6 MEQ/L Anion Gap 8 MEQ/L Blood Urea Nitrogen 21 MG/DL Creatinine 1.20 MG/DL Estimat Glomerular Filtration 66 ML/MIN Rate Random Glucose 134 MG/DL Calcium Level 8.7 MG/DL Magnesium Level 2.1 MG/DL [facility] Medical Decision Making Medical Screen Exam Complete: Yes Emergency Medical Condition: Yes Medical Record Reviewed: Yes Interpretation(s) CBC & BMP Diagram 12/28/16 21:52 Vital Signs Date Time Temp Pulse Resp B/P Pulse Ox O2 Delivery O2 Flow Rate FiO2 12/28/16 23:49 62 18 141/71 97 Room Air 174/85 12/28/16 23:15 62 16 140/72 96 Room Air 12/28/16 22:34 18 12/28/16 22:02 97.7 82 14 144/97 97 Differential Diagnosis Sciatica HNP DVT PVD UTI prostatitis renal insufficiency, BPH; no exam or history findings for cauda equina syndrome or acute limb ischemia Narrative Course review of visit 11/10/16 for same complaint-- sitting for urination, right lower back to groin to RLE pain --negative US RLE, negative CT abdomen/pelvis with iv contrast and no AAA; and L MRI disc disease at L4-5 and L5-S1 without nerve impingement --referred to urology and neurosurgery --has not scheduled follow up bedside bladder scan; ankle brachial index. IV access obtained specimens questions for resulting; patient administered Toradol 30 g IV SHENA RLE 0.8 c/w some PVD US RLE: negative for DVT Imaging and lab results discussed with patient. Patient is stable for outpatient management. Patient is clinically improved after Toradol and additional steroid therapy. Patient is encouraged to follow-up with his primary care provider will need to follow-up as well with urologist regarding asymptomatic hematuria, neurosurgery for lumbar disc disease with intermittent radiculopathy and sciatica as well as have reassessment of ankle brachial index and possible vascular surgeon referral in view of risk factors of hypertension and dyslipidemia for study patient is a nonsmoker. Patient with multiple subacute concerns/complaints. No acute findings identified and patient stable for outpatient management. Diagnosis Primary Impression: Sciatica of right side Additional Impressions: Lumbar radiculopathy Hematuria PVD (peripheral vascular disease) Renal insufficiency Referrals: Primary Care Physician call for appointment Patient Instructions: General Instructions Additional Instructions: follow up with your primary care provider for follow-up of sciatica/lumbar disc disease, hematuria, and peripheral vascular disease Complete course of steroid as prescribed Continue current medications as presently prescribed Increase fluid hydration Return to the emergency department for any concerns or change in condition Med/Other Pt SpecificInfo: Prescription(s) given Scripts Prednisone 50 Mg Tab50 Mg PO DAILY 4 Days Ref 0 Prov:Arcelia Mejía MD 12/29/16 Disposition: 01 DISCHARGE HOME Condition: Stable Arcelia Mejía MD Dec 28, 2016 22:54 Arcelia Mejía MD Dec 28, 2016 22:54
[2016-12-28 23:04] LABS: BLOOD, URINE LARGE (NEG); GLUCOSE,URINE NEG (NEG); KETONE, URINE TRACE mg/dL (NEG); NITRITE,URINE NEG (NEG)
[2016-12-28 23:05] LABS: AUTOMATED NEUTROPHIL # 4.2 TH/MM3 (1.8-7.7); BASOPHIL # 0.1 TH/MM3 (0-0.2); BASOPHIL % 0.8 % (0.0-2.0); EOSINOPHIL # 0.1 TH/MM3 (0-0.4); HEMATOCRIT 41.3 % (39.0-51.0); LYMPH % 20.9 % (9.0-44.0); LYMPHOCYTE # 1.3 TH/MM3 (1.0-4.8); MEAN CELL VOLUME 82.4 FL (80.0-100.0); MEAN CORPUSCULAR HEMOGLOBIN 27.6 PG (27.0-34.0); MEAN CORPUSCULAR HGB CONC 33.5 % (32.0-36.0); MONO % 8.2 % (0.0-8.0); NEUT % 68.1 % (16.0-70.0); PLATELET COUNT 150 TH/MM3 (150-450); RED BLOOD COUNT 5.01 MIL/MM3 (4.50-5.90); RED CELL DISTRIBUTION WIDTH 14.1 % (11.6-17.2); WHITE BLOOD COUNT 6.3 TH/MM3 (4.0-11.0)
[2016-12-28 23:08] LABS: URINE COLOR YELLOW (YELLW/STRAW)
[2016-12-28 23:09] LABS: COMMENT (UR) CULT NOT INDICATED; CULTURE IF INDICATED CULT NOT INDICATED; SQUAMOUS EPITHELIAL CELL URINE 0-5 /hpf (0-5); WBC, URINE 0-2 /hpf (0-5)
[2016-12-28 23:10] LABS: HEMO FLAGS DIFF FINAL
[2016-12-28 23:11] LABS: POTASSIUM 3.7 MEQ/L (3.5-5.1)
[2016-12-28 23:14] LABS: BICARBONATE 26.6 MEQ/L (21.0-32.0); MAGNESIUM 2.1 MG/DL (1.5-2.5)
[2016-12-28 23:15] VITALS: BP 140/72; PULSE 62; RESP 16; O2SAT 96
[2016-12-28 23:49] VITALS: BP_SYST 141; BP_SYST 174; BP_DIAS 71; BP_DIAS 85; PULSE 62; RESP 18; O2SAT 97
--- NOTE | 2016-12-28 23:49 | RADHPO ---
EXAM DATE/TIME: 12/28/2016 23:09 [facility] COMPARISON: No previous studies available for comparison. INDICATIONS : Right leg pain. MEDICAL HISTORY : Hypertension. Hypercholesterolemia. Deep vein thrombosis. Renal calculi. SURGICAL HISTORY : Rotator cuff, right. Left elbow surgery. ENCOUNTER: Initial ACUITY: 1 month PAIN SCORE: 8/10 LOCATION: Right leg. TECHNIQUE: Venous ultrasound of the leg was performed from the inguinal ligament to the proximal calf. Real-cesar e, color Doppler and spectral tracing, compression and augmentation techniques were used. FINDINGS: There is normal compressibility of the deep venous system from the inguinal region to the proximal ca lf. No echogenic clot is seen in the lumen of the common femoral, femoral, popliteal, and posterior tibial veins. There is a normal response of the venous system to proximal and distal augmentation an d respiration. CONCLUSION: Normal examination. Dl Segundo MD on December 28, 2016 at 23:47 Board Certified Radiologist. This report was verified electronically.
[2016-12-29] MEDS ORDERED: SODIUM CHLOR 0.9% 1000 ML INJ 1,000 ML IV ONE
[2016-12-29] MEDS ORDERED: PRED50 PO (00:08)
[2016-12-29] MEDS ORDERED: DEXAMETHASONE SOD PHOS 4 MG/ML VIAL IV PUSH ONE (00:15)
[2016-12-29 00:28] VITALS: BP 140/80; PULSE 55; RESP 16; O2SAT 97
== END 2016-12-29 00:48 | disposition home or self-care (01) ==
LOC: PHED 21:55
DX: M54.31 Sciatica, right side (principal); M54.16 Radiculopathy, lumbar region; M79.604 Pain in right leg; R31.9 Hematuria, unspecified; I73.9 Peripheral vascular disease, unspecified; N28.9 Disorder of kidney and ureter, unspecified; I10 Essential (primary) hypertension; Z79.899 Other long term (current) drug therapy
CPT/HCPCS: 80048; 81001; 83735; 85025; 93971; 96361; 96374; 96375; 99285; J1100; J1885; J7030

== ENCOUNTER → 2017-06-02 | Day surgery (SDC) | payer OTHER ==
[~2017-06-02] VITALS: Ht 180.3 cm; Wt 84.9 kg
[~2017-06-02] MED LIST changes: +*HYDROmorphone PF 1 MG VIAL PERIprocedural Use ONLY ONE; +*diphenhydrAMINE HCL 50 MG/ML VIAL PERIprocedural Use ONLY ONE; +ACETAMINOPHEN 1000 MG/100 ML 0 ML IV ONE; +BACL10TA PO; +BUPIVACAINE HCL PF 0.5% 30 ML VIAL ONE; +CHLORHEXIDINE GLUCONATE 2 % 1 PACK (2 CLOTHS) TOPICAL PRN; +CHLORHEXIDINE GLUCONATE 4% SOLN 120 ML BTL TOPICAL SCH; +DEXAMETHASONE SOD PHOS 4 MG/ML VIAL IV ONE; +DO NOT ADM ANY ANTICOAGULANT DRUGS PRN; +GENTAMICIN SULFATE 80 MG/2 ML VIAL ONE; +GLYCOPYRROLATE 1 MG/5 ML SYRINGE IV PUSH ONE; +INDO25CA PO; +INSULIN HUMAN REGULAR 1,000 UNITS/10 ML VIAL SQ PRN; +KETAMINE HCL 500 MG/10 ML VIAL ONE; +KETOROLAC TROMETHAMINE 30 MG/ML (IVP) VIAL IVP ONE; +LACTATED RINGER'S 1000 ML IV PRN; +LIDOCAINE HCL 1% PF 5 ML AMPULE OTHER ONE; +METOPROLOL TARTRATE 25 MG TAB PO PRN; +MIDAZOLAM HCL 2 MG/2 ML VIAL IV ONE; +MORPHINE SULFATE 4 MG/ML INJ IV PUSH PRN; +ONDANSETRON HCL 4 MG/2 ML VIAL IV PUSH ONE; +ONDANSETRON HCL 4 MG/2 ML VIAL IV PUSH PRN; +PERC5TAB12 PO; +POVIDONE IODINE 5% (ANTISEPSIS KIT) 4 APPLICATIONS EACH NARE PRN; +PRED50 PO; +PROPOFOL 200 MG/20 ML AMP IV ONE; +SODIUM CHLORID 0.9% 500 ML IV PRN; +SODIUM CHLORIDE 0.9% FLUSH 10 ML FLUSH IV FLUSH PRN; +SODIUM CHLORIDE 0.9% FLUSH 10 ML FLUSH IV FLUSH SCH; +VANCOMYCIN 1000 MG/NS 250 ML (for <70 kg) IV SCH; +XARE10TA PO; +ceFAZolin 2 GM PREMIX 50 ML IV SCH; +ePHEDrine/NS 25 MG/5 ML SYR IV ONE; +oxyCODONE/ACETAMINOPHEN 5 MG/325 MG TAB PO PRN
--- NOTE | 2017-06-02 15:48 | PD.OP ---
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 Surgeon: Kevin Valente Sweatband Decorating Machine Operator(s): VENKATA Mcmahon The surgical procedure was assisted by my Advanced Registered Nurse Practitioner. My SCOURING TRAIN OPERATOR presence was necessary throughout this case for the manipulation and positioning of the surgical extremity. My SCOURING TRAIN OPERATOR was assisting me throughout the duration of this procedure. The skill set of an Advance Registered Nurse Practitioner was medically necessary to complete this procedure. During the surgical case, the medical or surgical instrument maker was working at the back table and the Advance Registered Nurse Practitioner was directly assisting me. Resident Surgeon: None Operation and Findings: DETAILS OF PROCEDURE This is a 42-year-old male who is status post revision radial head replacement. Patient had a injury in [place] a few years ago with lateral ulnar collateral reconstruction as well as a radial head replacement. This was a severe injury resulted in significant disability to the patient. He was doing fine after the second surgery, however subsequent imaging examination revealed a loose implant with a fractured cement mental as well as further degeneration at the radiocapitellar joint. In addition, the patient reported debilitating lateral elbow pain as well as significant decrease in functional ROM. Preoperative range of motion left elbow was 0 supination, 10 pronation, flexion to 120, extension 75. The decision was made to proceed with surgery for removal versus revision of the radial head implant as well as excision of the synostosis and capsular release. Informed consent was obtained. The operative site was marked. He was brought to the OR and placed on the OR table. He was given IV sedation and general endotracheal anesthesia. He was placed in the supine position. The arm was prepped with alcohol followed by Hibiclens and draped in the usual sterile fashion. A timeout procedure wasperformed. He received IV antibiotics. Incision was made through his. Surgical scar which resembled a standard danya approach to the lateral elbow. The forearm was maintained in pronation for majority of the the case to protect the PIN. The radial head implant was now exposed. It was grossly loose and removed. There was significant synostosis of the proximal radial ulnar area. Using a rongeur this synostosis was taken down and bone wax was interposed. Fluoroscopy revealed excision of the majority of the proximal radial ulnar synostosis allowing improved supination and pronation. At that point supination was up to 40 and pronation at 80. The soft tissue was elevated off the anterior aspect of the distal humerus to access the capsule. From there, I found significant scarring of the anterior capsule and anterior soft tissue making difficult to identify the overlying neurovascular structure. An anterior capsular release was carefully performed. This allowed for extension up to 45 and flexion up 140. The olecranon fossa and olecranon tip were palpated posteriorly and did not cause any block to extension through range of motion. The elbow was placed through a gentle range of motion and was stable in extension as well as varus/valgus stress. The Decision was then made to not replace the radial head. In addition, there was significant degeneration of the capitellum, there was significant bone loss of the proximal radius which makes it difficult for appropriate placement of radial head implant. Tourniquet was released. The wound was thoroughly irrigated and closed deep with 2-0 Vicryl. The subcutaneous tissue was closed with 3-0 Vicryl, and the skin was closed with 3-0 nylon. Sterile dressings were applied. The patient was placed in a well-molded, well-padded splint prior to being was transferred to Recovery in stable condition. Early range of motion will be started within a week. Patient was placed on indomethacin to prevent further heterotopic ossification and synostosis recurrence. Kevin Valente Jr., MD Jun 02, 2017 15:48
[2017-06-02 17:35] VITALS: BP 131/76; PULSE 77; RESP 16; TEMP 97.6; O2SAT 95
--- NOTE | 2017-06-02 18:12 | RADRPT ---
EXAM DATE/TIME: 06/02/2017 14:15 [facility] COMPARISON: No previous studies available for comparison. INDICATIONS : Surgical removal of radial head. MEDICAL HISTORY : None. SURGICAL HISTORY : None. ENCOUNTER: Initial ACUITY: 1 day PAIN SCORE: Non-responsive. LOCATION: Left elbow. FINDINGS: 5 magnified C-arm spot views are centered over the elbow and labeled left. There is surgical absence of the radial head, radial neck, and adjacent diaphysis. Air and fluid is seen within the joint space . Anchoring devices overlie the lateral epicondyles. A focus of increased density seen involving the trabecular bone of the remaining proximal radial diaphysis likely related to bone cement. CONCLUSION: Limited images as detailed above. Jay Franklin Jr., MD on June 02, 2017 at 18:09 Board Certified Radiologist. This report was verified electronically.
== END | disposition home or self-care (01) ==
LOC: HSDC 09:10
PROVIDERS: ATTEND Orthopaedic Surgery
DX: M24.522 Contracture, left elbow (principal); Q74.0 Other congenital malformations of upper limb(s), including shoulder girdle; T84.038A Mechanical loosening of other internal prosthetic joint, initial encounter; M19.022 Primary osteoarthritis, left elbow
CPT/HCPCS: 01740; 24006; 24147; 24164; 73080; 76000; 86850; 86900; 86901; J0690; J1100; J1170; J1200; J1580; J1885; J2250; J2405; J3010; J3370; J7050; J7120; J0131

== ENCOUNTER 2018-09-08 19:35 | Observation (INO) ==
[2018-09-08] MEDS ORDERED: Pantoprazole Inj 40 MG Vial IV.PUSH ONE (20:17)
--- NOTE | 2018-09-08 20:25 | ED ---
HPI General Chief Complaint: Chest Pain Stated Complaint: n/v/dizziness/cp since 1400 Time Seen by Provider: 09/08/18 20:12 Source: patient Mode of arrival: ambulatory History of Present Illness HPI narrative: 43-year-old male presents to the emergency department by private transportation for complaint of epigastric pain 7/10 in intensity since 2 PM today. Pain radiates to the subxiphoid substernal distribution of the chest 6/ 10 in intensity. Patient states he had associated headache and dizziness pillar pain. Patient has history of hypertension and dyslipidemia. Patient is a non-smoker. Patient denies any history of coronary vessel disease or palpitations or arrhythmia. Patient's had no diaphoresis near syncope syncope or shortness of breath. Patient's had multiple episodes x4 of nausea with vomiting stomach contents and bilious emesis. No report of hematemesis or coffee-ground emesis. Patient also denies known history of gastritis peptic ulcer disease pancreatitis or biliary colic. Patient does not report history of gallstones. Patient states that he does not recalls precipitating event. Patient does take atenolol for his blood pressure which he did take today as well as a statin for his dyslipidemia. Patient states that he also has a headache that he rates 6/10 in intensity and back pain he rates 6/10 in intensity. Patient's had no fever or chills. Patient's had no diarrhea or constipation. No dysuria frequency urgency flank pain or hematuria. Patient is taken no medications for his symptoms. Patient states he also has prior history of PE and DVT post surgical in 2016 was on Xarelto times 4 months. Patient does not report any upper extremity or lower extremity pain or swelling and denies any pleuritic chest pain. Also no shortness of breath and no hemoptysis. Patient denies any family history of clotting disorder no recent surgical procedure no long distance travel. Patient also denies any dietary indiscretion well water ingestion or foreign travel. complaint: Reports chest pain and other (epigastric abdominal pain) Onset (ago): hour(s) Time: 14:00 Duration: constant Onset: during rest Pain location: Reports substernal and epigastric Severity: moderate Severity scale (1-10): 6 Quality: Reports aching and sharp Pain radiation: Reports LUE (tingling of the hand) and back Relieving factors: nothing and other (has taken no medications) Exacerbating factors: nothing Context: Reports history of DVT/PE; Denies recent illness, recent surgery, recent immobilization, recent travel, trauma/injury and new medications Associated symptoms: Reports nausea and vomiting; Denies diaphoresis, dyspnea, sense of impending doom, syncope, palpitations, fever, cough and leg swelling Treatments prior to arrival chest pain: Reports none Related Data Home Medications Medication Instructions Recorded Confirmed atenolol 50 mg PO DAILY 03/14/18 09/08/18 clonazepam [Klonopin] 0.5 mg PO BID 03/14/18 09/08/18 meclizine 25 mg PO BID PRN 03/14/18 09/08/18 pravastatin 80 mg PO DAILY 03/14/18 09/08/18 zolpidem [Ambien] 10 mg PO HS 03/14/18 09/08/18 Allergies Allergy/AdvReac Type Severity Reaction Status Date / Time acetaminophen Allergy Mild rash Verified 09/08/18 20:28 morphine Allergy Mild rash Verified 09/08/18 20:28 oxycodone Allergy Mild rash Verified 09/08/18 20:28 Review of Systems ROS: all other systems reviewed are negative PMFSH History History Provided By: Patient (Elbow surgery, DVT, PE, hypertension, dyslipidemia , vertigo, anxiety) Family History Family History Other History of total replacement of right shoulder joint Social History Social History Substance History: No History of Abuse Smoking Status: Never smoker How Often Do You Have a Drink Containing Alcohol: Never Recent Travel in [facility] within the Last 8 Weeks: No Recent Out of Country Travel within the Last 8 Weeks: No Exam Narrative Exam Narrative: GENERAL: Well-nourished, well-developed patient. No acute distress no respiratory distress. SKIN: Focused skin assessment warm/dry. HEAD: Normocephalic. EYES: No scleral icterus. No injection or drainage. NECK: Supple, trachea midline. No JVD or lymphadenopathy. CARDIOVASCULAR: Regular rate and rhythm without murmurs, gallops, or rubs. RESPIRATORY: Breath sounds equal bilaterally. No accessory muscle use. GASTROINTESTINAL: Abdomen soft, reproducible epigastric tenderness to palpation with voluntary guarding no rebound no clinical Ramirez sign, nondistended. MUSCULOSKELETAL: No cyanosis, or edema. Radial dorsalis pedis pulses 2+ to palpation bilaterally BACK: Nontender without obvious deformity. No CVA tenderness. Course Initial Documented Vital Signs Temperature 98.4 F 09/08/18 19:50 Pulse Rate 62 09/08/18 19:50 Respiratory Rate 18 09/08/18 19:50 Blood Pressure 149/92 H 09/08/18 19:50 Pulse Oximetry 97 09/08/18 19:50 Last Documented Vital Signs Temperature 98.4 F 09/08/18 19:50 Pulse Rate 50 L 09/08/18 23:51 Respiratory Rate 15 09/08/18 23:51 Blood Pressure 128/85 09/08/18 23:51 Pulse Oximetry 98 09/08/18 23:51 Medical Decision Making MDM Narrative Medical decision making narrative: Patient placed on monitoring coordinator with continuous pulse oximetry IV access obtained specimens collections of resulting EKG ordered plan to give patient aspirin 162 mg by mouth x1 dose as well as sublingual nitroglycerin x1 dose maintenance fluids 125 cc/h normal saline and Protonix 40 mg IVas well as Zofran 4 mg IV EKG: Sinus bradycardia rate 50 interventricular conduction delay LVH by voltage criterion no acute ST elevation nonspecific T wave changes; no comparison d-dimer 0.19, not elevated 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 Medical Screen Exam Complete: Yes Emergency Medical Condition: Yes Lab Data Result diagrams: 09/08/18 20:15 09/08/18 20:15 Lab Results 09/08/18 09/08/18 09/08/18 Range/Units 20:15 20:15 20:15 CBC w Diff Slide review pending WBC 6.1 (4.0-11.0) th/mm3 RBC 5.36 (4.50-5.90) mil/mm3 Hgb 14.3 (13.0-17.0) gm/dL Hct 44.2 (39.0-51.0) % MCV 82.6 (80.0-100.0) fL MCH 26.6 L (27.0-34.0) pg MCHC 32.2 (32.0-36.0) % RDW 13.0 (11.6-17.2) % Plt Count 137 L (150-450) th/mm3 MPV 11.8 H (7.0-11.0) fL Neut % (Auto) 52.6 (16.0-70.0) % Lymph % (Auto) 32.6 (9.0-44.0) % Howell % (Auto) 10.2 H (0.0-8.0) % Eos % (Auto) 1.7 (0.0-4.0) % Baso % (Auto) 2.9 H (0.0-2.0) % Neut # (Auto) 3.2 (1.8-7.7) th/mm3 Lymph # (Auto) 2.0 (1.0-4.8) th/mm3 Howell # (Auto) 0.6 (0.0-0.9) th/mm3 Eos # (Auto) 0.1 (0.0-0.4) th/mm3 Baso # (Auto) 0.2 (0.0-0.2) th/mm3 WBC Differential . Diff Scan Auto diff confirmed Differential Comment . Platelet Estimate Low L (Normal) Platelet Morphology Enlarged H (Normal) PT 10.9 (9.8-11.6) sec INR 1.1 Ratio APTT 27.6 (23.4-31.7) sec D-Dimer Quant (PE/DVT) (0.00-0.50) mg/L FEU Sodium 141 (136-145) meq/L Potassium 4.3 (3.5-5.1) meq/L Chloride 107 (98-107) meq/L Carbon Dioxide 26.8 (21.0-32.0) meq/L Anion Gap 7 (5-15) meq/L BUN 20 H (7-18) mg/dL Creatinine 1.10 (0.60-1.30) mg/dL Estimated GFR 73 L (>89) mL/min Random Glucose 91 (74-106) mg/dL Calcium 8.9 (8.5-10.1) mg/dL Magnesium (1.5-2.5) mg/dL Total Bilirubin 0.5 (0.2-1.0) mg/dL AST 53 H (15-37) U/L ALT 93 H (12-78) U/L Alkaline Phosphatase 81 (45-117) U/L Total Creatine Kinase 227 (39-308) U/L CK-MB (CK-2) Less than 1.0 (0.5-3.6) ng/mL Troponin I Less than 0.02 L (0.02-0.05) ng/mL Total Protein 8.0 (6.4-8.2) g/dL Albumin 4.2 (3.4-5.0) g/dL Lipase 111 (73-393) U/L 09/08/18 09/08/18 Range/Units 20:15 23:48 CBC w Diff WBC (4.0-11.0) th/mm3 RBC (4.50-5.90) mil/mm3 Hgb (13.0-17.0) gm/dL Hct (39.0-51.0) % MCV (80.0-100.0) fL MCH (27.0-34.0) pg MCHC (32.0-36.0) % RDW (11.6-17.2) % Plt Count (150-450) th/mm3 MPV (7.0-11.0) fL Neut % (Auto) (16.0-70.0) % Lymph % (Auto) (9.0-44.0) % Howell % (Auto) (0.0-8.0) % Eos % (Auto) (0.0-4.0) % Baso % (Auto) (0.0-2.0) % Neut # (Auto) (1.8-7.7) th/mm3 Lymph # (Auto) (1.0-4.8) th/mm3 Howell # (Auto) (0.0-0.9) th/mm3 Eos # (Auto) (0.0-0.4) th/mm3 Baso # (Auto) (0.0-0.2) th/mm3 WBC Differential Diff Scan Differential Comment Platelet Estimate (Normal) Platelet Morphology (Normal) PT (9.8-11.6) sec INR Ratio APTT (23.4-31.7) sec D-Dimer Quant (PE/DVT) Less than 0.19 (0.00-0.50) mg/L FEU Sodium (136-145) meq/L Potassium (3.5-5.1) meq/L Chloride (98-107) meq/L Carbon Dioxide (21.0-32.0) meq/L Anion Gap (5-15) meq/L BUN (7-18) mg/dL Creatinine (0.60-1.30) mg/dL Estimated GFR (>89) mL/min Random Glucose (74-106) mg/dL Calcium (8.5-10.1) mg/dL Magnesium 2.1 (1.5-2.5) mg/dL Total Bilirubin (0.2-1.0) mg/dL AST (15-37) U/L ALT (12-78) U/L Alkaline Phosphatase (45-117) U/L Total Creatine Kinase (39-308) U/L CK-MB (CK-2) (0.5-3.6) ng/mL Troponin I (0.02-0.05) ng/mL Total Protein (6.4-8.2) g/dL Albumin (3.4-5.0) g/dL Lipase (73-393) U/L Imaging Data Radiologist's impression: Chest X-Ray 09/08/18 20:12 CONCLUSION: The lungs are clear. ECG Data EKG Prior to Arrival: No Attestation: I personally reviewed and interpreted this ECG as follows: (EKG: Sinus bradycardia rate 50 interventricular conduction delay LVH by voltage criterion no acute ST elevation nonspecific T wave changes; no comparison) Discharge Plan Discharge Disposition Patient Disposition: ED Admit(ED Internal Use Only) Discharge Condition Condition: Stable Discharge Order Discharge Orders: ED Use Only Admit Order (Routine); Ordered 09/09/18 Ordered By: Arcelia Mejía Discharge Details Diagnosis: Chest pain Physicians Team ED Provider: Arcelia Mejía Primary Care Provider: Calixto Mejía Rxs /Orders / Referrals /Forms Prescriptions: No Action clonazepam [Klonopin] 0.5 mg Tablet 0.5 mg PO BID RF: 0 meclizine 25 mg Tablet 25 mg PO BID PRN (Reason: Dizziness) RF: 0 atenolol 50 mg Tablet 50 mg PO DAILY RF: 0 pravastatin 80 mg Tablet 80 mg PO DAILY RF: 0 zolpidem [Ambien] 10 mg Tablet 10 mg PO HS RF: 0 Discharge Instructions Patient Printed Instructions: Chest Pain (ED) Discharge Interventions Interventions: Vital Signs Last Done: 09/08/18 19:50 Status ED Status: With Doctor
[2018-09-08 20:32] LABS: Baso # (Auto) 0.2 th/mm3 (0.0-0.2); Baso % (Auto) 2.9 % (0.0-2.0); Eos # (Auto) 0.1 th/mm3 (0.0-0.4); Eos % (Auto) 1.7 % (0.0-4.0); Hematocrit 44.2 % (39.0-51.0); Hemoglobin 14.3 gm/dL (13.0-17.0); Lymph % (Auto) 32.6 % (9.0-44.0); Mean Corpuscular HGB Conc 32.2 % (32.0-36.0); Mean Corpuscular Hemoglobin 26.6 pg (27.0-34.0); Mean Corpuscular Volume 82.6 fL (80.0-100.0); Mean Platelet Volume 11.8 fL (7.0-11.0); Mono # (Auto) 0.6 th/mm3 (0.0-0.9); Mono % (Auto) 10.2 % (0.0-8.0); Neut # (Auto) 3.2 th/mm3 (1.8-7.7); Neut % (Auto) 52.6 % (16.0-70.0); Platelet Count 137 th/mm3 (150-450); Red Blood Count 5.36 mil/mm3 (4.50-5.90); White Blood Count 6.1 th/mm3 (4.0-11.0)
[2018-09-08 20:42] LABS: Chloride 107 meq/L (98-107); Potassium 4.3 meq/L (3.5-5.1); Sodium 141 meq/L (136-145)
[2018-09-08 20:44] LABS: Activated Partial Thrombo Time 27.6 sec (23.4-31.7); INR 1.1 Ratio; Prothrombin Time 10.9 sec (9.8-11.6)
[2018-09-08 20:47] LABS: Albumin 4.2 g/dL (3.4-5.0); Anion Gap 7 meq/L (5-15); Calcium 8.9 mg/dL (8.5-10.1); Carbon Dioxide 26.8 meq/L (21.0-32.0); Glucose,Random 91 mg/dL (74-106); Lipase 111 U/L (73-393)
[2018-09-08 20:48] LABS: Blood Urea Nitrogen 20 mg/dL (7-18)
[2018-09-08 20:50] LABS: Alanine Aminotransferase 93 U/L (12-78); Aspartate Aminotransferase 53 U/L (15-37); Glomerular Filtration Rate 73 mL/min (>89)
[2018-09-08 20:53] LABS: Alkaline Phosphatase 81 U/L (45-117); Creatine Kinase 227 U/L (39-308)
--- NOTE | 2018-09-08 20:58 | XR ---
EXAM DATE: 09/08/2018 8:54 PM EST AGE/SEX: 43 years / Male INDICATIONS: Chest pain, nausea, vomiting, syncope. CLINICAL DATA: This is the patient's initial encounter. Patient reports that signs and symptoms have been present for 1 day and indicates a pain score of 6/10. MEDICAL/SURGICAL HISTORY: Hypertension. None. COMPARISON: [facility], CHEST SINGLE AP, 10/13/2016. . FINDINGS: A single AP view of the chest demonstrates the lungs to be symmetrically aerated without evidence of mass, infiltrate or effusion. The cardiomediastinal contours are unremarkable. Osseous structures a re intact. CONCLUSION: The lungs are clear. Electronically signed by: Yosef Fontanez MD Board Certified Radiologist 09/08/2018 8:57 PM EST
[2018-09-09 01:31] LABS: Creatine Kinase 163 U/L (39-308)
[2018-09-09 04:26] LABS: Creatine Kinase 197 U/L (39-308)
--- NOTE | 2018-09-09 08:47 | ECG ---
Date Performed: 09/09/2018 Time Performed: 01:33:39 PTAGE: 43 years EKG: SINUS BRADYCARDIA WITH SINUS ARRHYTHMIA NONSPECIFIC T-WAVE ABNORMALITY BORDERLINE ECG No si gnificant change from prior electrocardiogram. PREVIOUS TRACING : 09/08/2018 20.24 DOCTOR: Diogo Islas Interpretating Date/Time 09/09/2018 08:45:35
--- NOTE | 2018-09-09 08:52 | ECG ---
Date Performed: 09/08/2018 Time Performed: 20:24:15 PTAGE: 43 years EKG: SINUS BRADYCARDIA MODERATE INTRAVENTRICULAR CONDUCTION DELAY MINIMAL VOLTAGE CRITERIA FOR L VH, CONSIDER NORMAL VARIANT NONSPECIFIC T-WAVE ABNORMALITY BORDERLINE ECG Compared to prior electroca rdiogram, rate has decreased . PREVIOUS TRACING : 10/13/2016 00.55 DOCTOR: Diogo Islas Interpretating Date/Time 09/09/2018 08:51:29
--- NOTE | 2018-09-09 08:53 | P.HPIM ---
History of Present Illness Primary Care Physician: Calixto Mejía MD Chief Complaint: Abdominal/chest pain History of Present Illness: 43-year-old male with known history of hypertension , hyperlipidemia, undergoing physical therapy for recent right shoulder surgery who presented to hospital for abdominal/chest pain. Patient states that he has been in normal state of health going to physical therapy Monday, Monday and Monday. He just started doing exercise with bench presses which he has not done in a long time. Patient indicates that the pain started in his epigastric region and radiated up into the middle part of his chest. He states that it started after he drank coffee in the morning without eating anything. The pain did not radiate to his neck, back, shoulder, arm. He did have some nausea. Denies any shortness of breath, dyspnea, radiation of pain, diaphoresis, lightheadedness or dizziness. Patient indicates that he just had a stress test done within the last 6 months which he described as a treadmill stress test which was normal. Patient is followed by Dr. Salmon, cardiology in outpatient setting. He had just seen him in July and his next follow-up appointment is January 01, 2019. Currently the patient is asymptomatic. Vital signs are stable. Patient remains afebrile. Review of Systems Review of Systems: all other systems reviewed are negative Cardiovascular: Reports chest pain Gastrointestinal: Reports abdominal pain and Reports nausea PMFSH Medical History Medical History History of anxiety (Acute) Hyperlipemia (Acute) Hypertension (Acute) Surgical History Surgical History History of shoulder surgery (Acute) History of implantation of joint prosthesis of left elbow (Acute) Family History Family History Mother History of depression Social History Social History Substance History: No History of Abuse Second Hand Smoke Exposure: No Smoking Status: Never smoker How Often Do You Have a Drink Containing Alcohol: Never Recent Travel in [facility] within the Last 8 Weeks: No Recent Out of Country Travel within the Last 8 Weeks: No Immunization History Tetanus Immunization: >5 Years Medications and Allergies Allergies Allergy/AdvReac Type Severity Reaction Status Date / Time acetaminophen Allergy Mild rash Verified 09/08/18 20:28 morphine Allergy Mild rash Verified 09/08/18 20:28 oxycodone Allergy Mild rash Verified 09/08/18 20:28 Home Medications Medication Instructions Recorded Confirmed Type atenolol 50 mg PO DAILY 03/14/18 09/08/18 History clonazepam [Klonopin] 0.5 mg PO BID 03/14/18 09/08/18 History meclizine 25 mg PO BID PRN 03/14/18 09/08/18 History pravastatin 80 mg PO DAILY 03/14/18 09/08/18 History zolpidem [Ambien] 10 mg PO HS 03/14/18 09/08/18 History Active Medications: Active Medications Aspirin (Aspirin) 325 mg PO DAILY JOANNE Atenolol (Tenormin) 50 mg PO DAILY JOANNE Clonazepam (Klonopin) 0.5 mg PO BID JOANNE Nitroglycerin (Nitrostat Sl) 0.4 mg SL Q5M PRN PRN Reason: CHEST PAIN Pravastatin Sodium (Pravachol) 80 mg PO DAILY JOANNE Sodium Chloride (Ns Flush) 2 ml IV.FLUSH UNSCH PRN PRN Reason: FLUSH AFTER USING IV ACCESS Sodium Chloride (Ns Flush) 2 ml IV.FLUSH BID JOANNE Sodium Chloride (Ns Flush) 2 ml IV.FLUSH PRN PRN PRN Reason: FLUSH AFTER USING IV ACCESS Physical Exam Vital signs: Vital Signs 09/08/18 19:50 09/08/18 20:12 09/08/18 20:36 Temperature 98.4 F Pulse Rate 62 60 Respiratory Rate 18 15 Blood Pressure 149/92 H 154/97 H Pulse Oximetry 97 98 98 09/08/18 20:41 09/08/18 21:07 09/08/18 21:12 Temperature Pulse Rate 58 L 59 L Respiratory Rate 15 14 Blood Pressure 135/75 144/83 H Pulse Oximetry 98 97 98 09/08/18 23:51 09/09/18 01:12 09/09/18 02:22 Temperature Pulse Rate 50 L 56 L Respiratory Rate 15 15 Blood Pressure 128/85 152/93 H Pulse Oximetry 98 99 98 09/09/18 02:25 09/09/18 04:00 09/09/18 04:19 Temperature 98.0 F Pulse Rate 56 L 60 Respiratory Rate 16 16 Blood Pressure 137/91 H Pulse Oximetry 97 98 97 09/09/18 07:23 Temperature Pulse Rate Respiratory Rate Blood Pressure Pulse Oximetry 95 Intake & Output 09/08/18 09/09/18 09/09/18 18:59 06:59 18:59 Weight 86.6 kg Other: # Voids 0 Date of Last Bowel Movement 09/09/18 Weight On Admission 88 kg Narrative: GENERAL: Well-developed, well-nourished, in no acute distress. alert and orientated HEENT: Head is normocephalic without any lesions or masses noted. Facial features are symmetric. Eyes: Pupils equal round reactive to light. Extraocular muscles are intact. Conjunctivae were clear. Oropharyngeal: Pharynx without any erythema edema. Tongue is midline without deviation. Buccal mucosa is moist without any masses or lesions NECK: Supple without any masses. Trachea midline no deviation. No JVD, no bruits are appreciated CARDIAC: Regular rhythm, regular rate. S1/S2 are heard. No murmurs gallops or rubs. LUNGS: Clear to auscultation bilaterally. No wheeze, rhonchi or rales. No use of accessory muscles on inspiration or expiration. ABDOMEN: Soft, nontender. Nondistended. Bowel sounds heard in all 4 quadrants. No organomegaly or masses. Negative rebound, negative guarding EXTREMITIES: No edema, pulses are equal bilaterally. No cyanosis or clubbing NEUROLOGY: Mood and affect appear appropriate. Cranial nerves II through XII grossly intact. Muscle strength 5/5 in upper and lower extremities bilaterally. Deep tendon reflexes are 2+ in upper and lower extremities bilaterally. Results Labs CBC & Chem 7: 09/08/18 20:15 09/08/18 20:15 Imaging Impressions Chest X-Ray 09/08/18 20:12 CONCLUSION: The lungs are clear. Caprini VTE Risk Assessment Caprini VTE Risk Assessment: No/Low Risk (score <= 1) Caprini Risk Assessment Model: Point Value = 1 Point Value = 2 Point Value = 3 Point Value = 5 Age 41-60 Minor surgery BMI > 25 kg/m2 Swollen legs Varicose veins or History of unexplained or recurrent spontaneous Oral contraceptives or hormone replacement Sepsis (< 1 month) Serious lung disease, including pneumonia (< 1 month) Abnormal pulmonary function Acute myocardial infarction Congestive heart failure (< 1 month) History of inflammatory bowel disease Medical patient at bed rest Age 61-74 Arthroscopic surgery Major open surgery (> 45 min) Laparoscopic surgery (> 45 min) Malignancy Confined to bed (> 72 hours) Immobilizing plaster cast Central venous access Age >= 75 History of VTE Family history of VTE Factor V Leiden Prothrombin [id number] Lupus anticoagulant Anticardiolipin antibodies Elevated serum homocysteine Heparin-induced thrombocytopenia Other congenital or acquired thrombophilia Stroke (< 1 month) Elective arthroplasty Hip, pelvis, or leg fracture Acute spinal cord injury (< 1 month) Prophylaxis Regimen: Total Risk Factor Score Risk Level Prophylaxis Regimen 0-1 Low Early ambulation 2 Moderate Order ONE of the following: *Sequential Compression Device (SCD) *Heparin 5000 units SQ BID 3-4 Higher Order ONE of the following medications: *Heparin 5000 units SQ TID *Enoxaparin/Lovenox 40 mg SQ daily (WT < 150 kg, CrCl > 30 mL/min) *Enoxaparin/Lovenox 30 mg SQ daily (WT < 150 kg, CrCl > 10-29 mL/min) *Enoxaparin/Lovenox 30 mg SQ BID (WT < 150 kg, CrCl > 30 mL/min) AND/OR *Sequential Compression Device (SCD) 5 or more Highest Order ONE of the following medications: *Heparin 5000 units SQ TID (Preferred with Epidurals) *Enoxaparin/Lovenox 40 mg SQ daily (WT < 150 kg, CrCl > 30 mL/min) *Enoxaparin/Lovenox 30 mg SQ daily (WT < 150 kg, CrCl > 10-29 mL/min) *Enoxaparin/Lovenox 30 mg SQ BID (WT < 150 kg, CrCl > 30 mL/min) AND *Sequential Compression Device (SCD) Assessment and Plan Plan Chest pain, atypical Patient with risk factors to include male, hypertension, hyper lipidemia Patient has been ruled out for acute coronary event with serial cardiac enzymes which remain negative Serial EKGs were reviewed by myself which did not show any acute changes or abnormalities Patient has had recent cardiac stress testing done within the last 6 months 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 Chowdhury Discharge Planning: Discharge home in stable condition Activity: Ad harrison. Diet: healthy heart diet Medication per medication reconciliation Follow-up with primary medical doctor in 1 week, follow-up with cardiology in 2 weeks H&P: Quality VTE Deep Vein Thrombosis/Pulmonary Embolism Present on Admission: No
[2018-09-09] MEDS ORDERED: Aspirin 325 MG Tablet PO SCH (09:00)
[2018-09-09] MEDS ORDERED: Atenolol 50 MG Tablet PO SCH (09:00)
[2018-09-09] MEDS ORDERED: clonazePAM 0.5 MG Tablet PO SCH (09:00)
[2018-09-09 10:11] VITALS: BP 137/86; PULSE 77; RESP 22; TEMP 97.3; O2SAT 94
[2018-09-09 10:38] LABS: Albumin 3.9 g/dL (3.4-5.0)
[2018-09-09 10:43] LABS: Total Protein 7.1 g/dL (6.4-8.2)
--- NOTE | 2018-09-09 11:31 | ECG ---
Date Performed: 09/09/2018 Time Performed: 04:08:21 PTAGE: 43 years EKG: SINUS BRADYCARDIA WITH FIRST DEGREE AV BLOCK NONSPECIFIC T-WAVE ABNORMALITY ABNORMAL ECG No significant change from prior electrocardiogram. PREVIOUS TRACING : 09/09/2018 01.33 DOCTOR: Diogo Islas Interpretating Date/Time 09/09/2018 11:30:45
== END 2018-09-09 12:00 | disposition home or self-care (01) ==
LOC: PHED 19:35 → PHEDA 19:35 → PH3 09-09 01:50
PROVIDERS: ADMIT Hospitalist; ATTEND Hospitalist
DX: Z86.711 Personal history of pulmonary embolism; R07.89 Other chest pain; R11.0 Nausea; Z86.718 Personal history of other venous thrombosis and embolism; R10.13 Epigastric pain; F41.9 Anxiety disorder, unspecified; Z79.899 Other long term (current) drug therapy; Z79.01 Long term (current) use of anticoagulants; I10 Essential (primary) hypertension; E78.5 Hyperlipidemia, unspecified; R74.0 Nonspecific elevation of levels of transaminase and lactic acid dehydrogenase [LDH]
CPT/HCPCS: 71010; 71045; 80053; 80076; 82550; 82552; 83690; 83735; 84484; 85025; 85379; 85610; 85730; 90774; 90775; 93005; 96374; 96375; 99285; C8952; C9113; G0378; J2405